=== PATIENT | female | born 1995 | race African-American/Black ===

== ENCOUNTER 2018-04-12 10:23 | Outpatient (CLI) | payer BC | END 2018-04-12 11:27 | disposition home or self-care (01) | LOC: LC 10:23 | PROVIDERS: ATTEND Obstetrics & Gynecology | PROC: 4A1HXCZ Monitoring of Products of Conception, Cardiac Rate, External Approach (ICD-10-PCS; principal; 2018-04-12) | DX: O48.0 Post-term pregnancy (principal); Z3A.40 40 weeks gestation of pregnancy | CPT/HCPCS: 59025 ==

== ENCOUNTER 2018-04-14 07:31 | Outpatient (CLI) | payer BC ==
--- NOTE | 2018-04-14 07:32 | L&D Progress Notes ---
PROGRESS NOTES Datetime Report Generated by CPN: 04/14/2018 07:32 PROGRESS NOTE Comment: Sent from office for repeat NST, transverse, Ct 1 strip, pt would like to have a version, Dr. Gross is communications project lead so Version was scheduled for that day, risk rviwed with pt pt sent from office for repeat NST, Cat 1 strip, baby is transverse, discussed version versus C/S, discussed risks with both, pt has decided to try a version, will schedule version for , call unit at 0500. NPO after midnight. Instructed if she starts in to labor or water breaks she is to come to LD [facility], discussed increase risk of prolapse cord with transverse position. Sister with pt and they agree version is the best for now. Pt is aware she can change her mind at any time. Pt voices her understanding of the plan SIGNATURE SIGNATURE: [id number] Assignment: Agatha Collazo MD Signature: with User ID: [email or web address] : with User ID: [email or web address]
[2018-04-14] MEDS ORDERED: PRENATAL VITAMIN W DHA CAPSULE PO SCH (11:15)
--- NOTE | 2018-04-14 12:18 | RADIOLOGY REPORT (SQ) ---
EXAM DESCRIPTION: U/S PROFILE W/O STRESS COMPLETED DATE/TIME: 04/14/2018 12:03 pm REASON FOR STUDY: nonreactive NST COMPARISON: None. TECHNIQUE: Limited james-scale realtime and static images of the fetus to measure specified parameter s. LIMITATIONS: None. FINDINGS: HEART RATE: 152 beats per minute. BREATHING MOVEMENT: 2 points. MOVEMENT: 2 points. POSTURE AND TONE: 2 points. QUALITATIVE BERNARDA: 2 points. OTHER: Vertex presentation. IMPRESSION: BIOPHYSICAL PROFILE: 04/27. Trimester of : Third - 28 weeks to delivery COMMENT: BREATHING MOVEMENTS: 2 POINTS: PRESENT 0 POINTS: ABSENT MOTION: 2 POINTS: PRESENT 0 POINTS: ABSENT TONE: 2 POINTS: PRESENT 0 POINTS: ABSENT AMNIOTIC FLUID VOLUME: 2 POINTS: LARGEST POCKET GREATER THAN 2 CM DEPTH. 0 POINTS: NO POCKET OF 2 CM. TECHNICAL DOCUMENTATION: JOB ID: [id number] [employer]- All Rights Reserved Reading location - IP/workstation name: [email or web address]
--- NOTE | 2018-04-14 12:40 | Non Stress Test Report ---
Non Stress Test Datetime Report Generated by CPN: 04/14/2018 12:39 DEMOGRAPHIC EGA NST: 40.3 EGA NST: 40.1 INDICATION Indication for Study: Ordered by Provider Indication for Study: Ordered by Provider; Other Indication for Study (NST) Other: repeat NST MONITORING Monitor Explained: Monitor Explained; Test Explained; Patient Verbalized Understanding Monitor Explained: Monitor Explained; Test Explained; Patient Verbalized Understanding Monitor Explained Other: see flowsheet for vital signs Time on Monitor: 04/14/2018 07:54 Time on Monitor: 04/12/2018 10:37 Time off Monitor: 04/14/2018 11:12 NST Duration: 198 NST INTERVENTIONS NST Interventions: PO Hydration; Meal Given; Reposition Patient; Vibroacoustic Stim; For Biophysical Profile NST Interventions: PO Hydration; Reposition Patient Physician Notified NST: Dr. Gross BABY A: [id number] BABY A Movement : Present Contraction Frequency : none FHR Baseline : 150 Accelerations : 15X15 Decelerations : None Variability : Moderate 6-25bpm NST Review: Does Not Meet Criteria for Reactive NST NST Review and Verified By : H. Marta, RN NST Results: Non-Reactive NST COMMENTS NST Comments: BPP 8/8 NST REPORT Report Trigger: Send Report
== END 2018-04-14 12:56 | disposition home or self-care (01) ==
LOC: LR 07:31 → UNDOADMIN 07:31 → LC 07:31 → EDSTATUS 04-19 08:15
PROVIDERS: ATTEND Obstetrics & Gynecology
DX: Z34.93 Encounter for supervision of normal pregnancy, unspecified, third trimester (principal)
CPT/HCPCS: 76819

== ENCOUNTER 2018-04-17 18:25 | Inpatient (IN) | payer BC ==
[2018-04-17] MEDS ORDERED: RINGERS SOLUTION,LACTATED 300 ML IV ONE (18:38)
[2018-04-17] MEDS ORDERED: DINOPROSTONE 10 MG VAGINAL INSERT.SR PV PRN (18:38)
[2018-04-17 18:48] LABS: APPEARANCE,URINE SLIGHTLY-CLOUDY; BILIRUBIN,URINE NEGATIVE (NEGATIVE); COLOR,URINE STRAW; GLUCOSE, URINE NEGATIVE (NEGATIVE); KETONES,URINE NEGATIVE (NEGATIVE); LEUKOCYTE ESTERASE,URINE NEGATIVE (NEGATIVE); NITRITE,URINE NEGATIVE (NEGATIVE); PROTEIN,URINE NEGATIVE (NEGATIVE); URINE SPECIFIC GRAVITY 1.001; UROBILINOGEN,URINE NEGATIVE mg/dL (<2.0)
[2018-04-17 19:07] LABS: ABSOLUTE BASOPHILS # (AUTO) 0.1 10^3/uL (0.0-0.2); ABSOLUTE EOSINOPHILS # (AUTO) 0.1 10^3/uL (0.0-0.6); ABSOLUTE LYMPHOCYTES (AUTO) 1.5 10^3/uL (0.5-4.7); ABSOLUTE MONOCYTES (AUTO) 0.6 10^3/uL (0.1-1.4); ABSOLUTE NEUT (AUTO) 3.2 10^3/uL (1.7-8.2); BASOPHILS % (AUTO) 0.9 % (0-2); EOSINOPHILS % (AUTO) 1.6 % (0-6); HEMATOCRIT 36.1 % (36.0-47.0); HEMOGLOBIN 11.9 g/dL (12.0-15.5); LYMPHOCYTES % (AUTO) 27.6 % (13-45); MEAN CORPUSCULAR HEMOGLOBIN 23.1 pg (27.0-33.4); MEAN CORPUSCULAR VOLUME 70 fl (80-97); MONOCYTES % (AUTO) 10.8 % (3-13); PLATELET COUNT 192 10^3/uL (150-450); RED BLOOD COUNT 5.15 10^6/uL (3.72-5.28); RED CELL DISTRIBUTION WIDTH 16.7 % (11.5-14.0); SEGMENTED NEUTROPHILS % (AUTO) 59.1 % (42-78); TOTAL CELLS COUNTED % (AUTO) 100 %; WHITE BLOOD COUNT 5.5 10^3/uL (4.0-10.5)
[2018-04-17 19:14] LABS: URINE AMPHETAMINES SCREEN NEGATIVE; URINE BARBITURATES SCREEN NEGATIVE; URINE BENZODIAZEPINES SCREEN NEGATIVE; URINE COCAINE SCREEN NEGATIVE; URINE MARIJUANA (THC) SCREEN NEGATIVE; URINE METHADONE SCREEN NEGATIVE; URINE PHENCYCLIDINE SCREEN NEGATIVE
[2018-04-17] MEDS ORDERED: DINOPROSTONE 10 MG VAGINAL INSERT.SR ONE (19:58)
--- NOTE | 2018-04-17 20:17 | Admission Physical ---
Datetime Report Generated by CPN: 04/17/2018 20:16 CURRENT ADMISSION Chief Complaint: Scheduled Induction of Labor Indication for Induction: Post Dates Admit Impression : Postterm, Intrauterine ; Intact Membranes; Induction of Labor Admit Plan: Admit to Unit; Initiate Labor Protocol ALLERGIES Medication Allergies: No Medication Allergies: No Known Allergies (04/14/2018) OBSTETRICAL HISTORY EDC: 04/11/2018 00:00 : 1 Para: 0 Term: 0 : 0 SAB: 0 IAB: 0 Ectopic: 0 Livin Cesareans: 0 VBACs: 0 Multiple Births: 0 Gestational Diabetes: No Rh Sensitization: No Incompetent Cervix: No KUNAL: No Infertility: No ART Treatment: No Uterine Anomaly: No IUGR: No Hx Previous C/S: No Macrosomia: No Hx Loss/Stillborn: No PIH: No Hx : No Placenta Previa/Abruption: No Depression/PP Depression: No PTL/PROM: No Post Hemorrhage: No Current Procedures: Ultrasound; NST Obstetrical History Comments: G1: Current SEE RECORDS Alcohol: No Marijuana : No Cocaine: No Other Illicit Drugs: No Cigarettes: Never Smoker. 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 INFECTIOUS HISTORY Gonorrhea: No Genital Herpes: No Chlamydia: No Tuberculosis: No Syphilis: No Hepatitis: No HIV/AIDS Exposure: No Rash or Viral Illness: No HPV: No PHYSICAL EXAM General: Normal HEENT: Normal Neurologic: Normal Thyroid: Normal Heart: Normal Lungs: Normal Breast: Deferred Back: Normal Abdomen: Normal Genitourinary Exam: Normal Extremities: Normal DTRs: Normal Pelvic Type: Adequate Vital Signs: Reviewed VAGINAL EXAM Dilatation: 1 Effacement: 25 Station: -3 MEMBRANES Pooling: Negative Membranes: Intact FETUS A EGA: 40.6 Monitoring: External US FHR- Baseline: 130 Variability: Moderate 6-25bpm Accelerations: 15X15 Decelerations: None FHR Category: Category I Presentation: Vertex Admit Comment: efw 7-8 lbs PLANS FOR LABOR AND DELIVERY Labor and Delivery: None Pain Management: Natural Feeding Preference: Breast Benefit of Breast Feed Discussed: Yes Circumcision: Yes INFORMED CONSENT Signature: with User ID: [email or web address]
[2018-04-17] MEDS: RINGERS SOLUTION,LACTATED 1,000 ML IV PRN ×3 (20:26→23:50)
[2018-04-18] MEDS ORDERED: OXYTOCIN/NORMAL SALINE 20 UNIT/1,000 ML RTUINJ IV PRN (10:24)
--- NOTE | 2018-04-18 10:24 | L&D Progress Notes ---
PROGRESS NOTES Datetime Report Generated by CPN: 04/18/2018 10:24 PROGRESS NOTE Impression Other: IUP @ 41w-IOL stable Procedures: Sterile Vag Exam Plan: Continue Present Management; Induction Informed Consent Obtained: Vaginal Delivery; Induction of Labor; Risks, Benefits and Alternatives Discussed Vital Signs : Reviewed; Within Normal Limits Comment: S: reports occasional cramping this AM, does not plan on epidural or pain medication at this time O: VSS, cervix as stated A: IUP @41w IOL for post term-status post cervidil P: continue IOL, will transition to IV pitocin per protocol. Reviewed poc. Pt. asked questions and verbalized understanding. Epidural prn. VAGINAL EXAM Dilatation: 3 Dilatation: 1 Effacement: 70 Effacement: 25 Station: -1 Station: -3 Contractions: irregular MEMBRANES Pooling: Negative Membranes: Intact Membranes: Intact FETUS A FHR - Baseline: 155 Monitoring: External US Variability: Moderate 6-25bpm Accelerations: 10X10 Decelerations: Variable : 41.0 Presentation: Vertex SIGNATURE SIGNATURE: [id number];[id number];[id number] SIGNATURE: [id number];[id number];[id number] SIGNATURE: [id number];[id number] Assignment: Leesa Gross MD Signature: with User ID: [email or web address] : with User ID: [email or web address]
[2018-04-18] MEDS ORDERED: OXYTOCIN/NORMAL SALINE 20 UNIT/1,000 ML RTUINJ ONE (11:04)
[2018-04-18] MEDS ORDERED: LIDOCAINE 1% INJ-PF (10 MG/ML) 30 ML SDV ONE (14:27)
[2018-04-18] MEDS ORDERED: MISOPROSTOL 0.2 MG TABLET ONE (14:27)
--- NOTE | 2018-04-18 17:09 | L&D Progress Notes ---
PROGRESS NOTES Datetime Report Generated by CPN: 04/18/2018 17:09 PROGRESS NOTE Impression Other: IOL-stable Procedures: Intrauterine Pressure Catheter; Sterile Vag Exam Plan: Induction Informed Consent Obtained: Induction of Labor; Risks, Benefits and Alternatives Discussed Vital Signs : Reviewed; Within Normal Limits Comment: S: pt. with more pain with contractions, does not desire anything for pain control at this time. O: VSS, pit off, cervix as stated, IUPC inserted without difficulty A: IUP @ 41w- stable, progressing some caput at this time P: continue IOL will re-start pitocin, epidural prn. Report given to Dr. Gross. MEMBRANES Membranes: Ruptured Amniotic Fluid Color: Clear FETUS A Monitoring: External US Decelerations: Variable; Prolonged FHR Category: Category II FHR Comments: resolved with position changes FETUS C SIGNATURE: [id number];[id number];[id number] Assignment: Leesa Gross MD Signature: with User ID: [email or web address] : with User ID: [email or web address]
[2018-04-18] MEDS ORDERED: FENTANYL/BUPIVACAINE/NS/PF 200 MCG/100 ML RTUINJ EPI ONE (21:33)
[2018-04-18] MEDS ORDERED: BUPIVACAINE HCL 0.25 % INJ/PF (2.5 MG/1 ML) 30 ML VIAL ONE (21:36)
[2018-04-18] MEDS ORDERED: FENTANYL CITRATE INJ/PF 100 MCG/2 ML AMPUL ONE (21:36)
[2018-04-18] MEDS ORDERED: EPHEDRINE SULFATE INJ 50 MG/1 ML AMPULE ONE (21:38)
[2018-04-19] MEDS ORDERED: BUPIVACAINE HCL 0.5 % INJ/PF 30 ML SDV ONE (03:14)
[2018-04-19] MEDS ORDERED: MAGNESIUM HYDROXIDE SUSP 30 ML UDCUP PO PRN (05:22)
[2018-04-19] MEDS ORDERED: GLYCERIN/WITCH HAZEL LEAF 1 EACH MED..PAD TP PRN (05:22)
[2018-04-19] MEDS ORDERED: NA PHOS,M-B/NA PHOS,DI-BA (ADULT) 133 ML ENEMA PR PRN (05:22)
[2018-04-19] MEDS ORDERED: PSEUDOEPHEDRINE HCL 30 MG TABLET PO PRN (05:22)
[2018-04-19] MEDS ORDERED: DIBUCAINE 1% OINTMENT 28 GM TP PRN (05:22)
[2018-04-19] MEDS ORDERED: BENZOCAINE/MENTHOL AEROSOL SPRAY 56 ML TOP PRN (05:22)
[2018-04-19] MEDS ORDERED: ZOLPIDEM TARTRATE 5 MG TABLET PO PRN (05:22)
[2018-04-19] MEDS ORDERED: DIPHENHYDRAMINE HCL 25 MG CAPSULE PO PRN (05:22)
[2018-04-19] MEDS ORDERED: MEASLES,MUMPS&RUBELLA VACC/PF 0.5 ML VIAL SUBCUT PRN (05:22)
[2018-04-19] MEDS ORDERED: DIPH/PERTUSS(ACELL)/TETANUS VAC/PF 0.5 ML SYR (>=10YO) IM PRN (05:22)
[2018-04-19] MEDS ORDERED: PROMETHAZINE HCL INJ 25 MG/1 ML VIAL IV PRN (05:22)
[2018-04-19] MEDS ORDERED: ACETAMINOPHEN WITH CODEINE #3 TABLET PO PRN ×2 (05:22)
[2018-04-19] MEDS ORDERED: PROMETHAZINE HCL 25 MG SUPP.RECT PR PRN (05:22)
[2018-04-19] MEDS ORDERED: OXYTOCIN/NORMAL SALINE 20 UNIT/1,000 ML RTUINJ IV PRN (05:22)
[2018-04-19] MEDS ORDERED: PROMETHAZINE HCL 25 MG TABLET PO PRN (05:22)
[2018-04-19] MEDS ORDERED: ACETAMINOPHEN 325 MG TABLET PO PRN (05:22)
[2018-04-19] MEDS ORDERED: IBUPROFEN 800 MG TABLET ONE (06:36)
[2018-04-19] MEDS: IBUPROFEN 800 MG TABLET PO SCH ×3 (07:18→21:03)
--- NOTE | 2018-04-19 08:11 | Delivery Summary ---
Del Sum A-C Datetime Report Generated by CPN: 04/19/2018 08:10 DELIVERY PERSONNEL DELIVERY PERSONNEL: [id number] Delivery Doctor:: Leesa Gross MD Labor and Delivery Nurse:: Colette Mahoney RN Nursery Nurse:: Lin Peraza RN Business Systems Advisor/SLOT MANAGER: Elliot Ertel, SLOT MANAGER MATERNAL INFORMATION Delivery Anesthesia: Epidural Medications After Delivery: Pitocin Drip 20 Units/1000ml NSS Maternal Complications: None Provider Comments: VMI delivered in JUAN PABLO presentation. No nuchal cord. Shoulders and body delivered without difficulty. COrd doubly clamped and cut and infant to maternal warmer for NRP. Placenta delivered intact spontaneously. FF at U. 1st degree perineal laceration repaired in usual fahsion. Mother and baby stable upon provider leaving the room. LABOR SUMMARY EDC: 04/11/2018 00:00 No. Babies in Womb: 1 Attempted: No Labor Anesthesia: Epidural LABOR INFORMATION Reason for Induction: Post Dates Onset of Labor: 04/19/2018 12:48 Complete Dilatation: 04/19/2018 03:32 Cervical Ripening Agents: Cervidil Oxytocin: Induction Group B Beta Strep: Negative Antibiotics # of Doses: 0 Steroids Given: None Reason Steroids Not Administered: Not Applicable MEMBRANES Membranes Rupture Method: Artificial Rupture of Membranes: 04/18/2018 12:48 Length of Rupture (hr): 15.42 Amniotic Fluid Color: Clear Amniotic Fluid Amount: Small Amniotic Fluid Odor: Normal STAGES OF LABOR Stage 1 hr: -9 Stage 1 min: -16 Stage 2 hr: 0 Stage 2 min: 41 Stage 3 hr: 0 Stage 3 min: 2 Total Time in Labor hr: -8 Total Time in Labor min: -33 VAGINAL DELIVERY Episiotomy: None Laceration #1: Vaginal Laceration Extension #1: First Degree Laceration Repair: Yes Laceration Repair Note: 1st degree perineal laceartion repaired for hemostasis Sponge Count Correct: Yes Sharps Count Correct: Yes CSECTION DELIVERY Primary Indication: N/A Secondary Indication: N/A CSection Incision: N/A BABY A INFORMATION Infant Delivery Date/Time: 04/19/2018 04:13 Method of Delivery: Vaginal Method of Delivery: Vaginal Born in Route : No : N/A Forceps: N/A Vacuum Extraction: N/A Shoulder Dystocia : No PRESENTATION/POSITION BABY A Presentation: Cephalic Cephalic Presentation: Vertex Vertex Position: Left Occipital Anterior Breech Presentation: N/A PLACENTA INFORMATION BABY A Placenta Delivery Time : 04/19/2018 04:15 Placenta Method of Delivery: Spontaneous Placenta Method of Delivery: Spontaneous Placenta Status: Delivered SCORES BABY A Heart Rate 1 min: >100 bpm Resp Effort 1 min: Good Cry Reflex Irritability 1 min: Cough or Sneeze or Pulls Away Muscle Tone 1 min: Active Motion Color 1 min: Blue/Pale Resuscitation Effort 1 min: Tactile Stimulation SCORE 1 MIN: 8 Heart Rate 5 min: >100 bpm Resp Effort 5 min: Good Cry Reflex Irritability 5 min: Cough or Sneeze or Pulls Away Muscle Tone 5 min: Active Motion Color 5 min: Body Mcleod, Extremities Blue Resuscitation Effort 5 min: Tactile Stimulation SCORE 5 MIN: 9 INFORMATION BABY A Gestational Age at Delivery: 41.1 Gestational Status: Late Term- 41- 41.6 Weeks Outcome : Liveborn Condition : Stable Sex: Male Sex: Male IDENTIFICATION BABY A Verification Date/Time: 04/19/2018 04:30 ID Band Number: [id number] Mother's Name Verified: Yes RN Verifying : S. Caroltibkarlir, RNC _ A. Mabelman, RN WEIGHT/LENGTH BABY A Infant Birthweight (gm): 2580 Weight (lb): 5 Infant Weight (oz): 11 Length (in): 19.50 Infant Length (cm): 49.53 CORD INFORMATION BABY A No. Cord Vessels: 3 Nuchal Cord : Around Neck x1, Loose Cord Blood Taken: Yes-For Storage (Mom's Blood type +) Infant Suction: Mouth; Nose ASSESSMENT BABY A Complications: Decreased Variability; Multiple Variable Decels; Meconium Physical Findings at Delivery: Molding of the Head Infant Respirations: Appears Normal Skin to Skin: Yes Skin to Skin: Yes In Home Sales Consultant/ALS Called : No Infant Care By: Jasmine Peraza RN Transferred To: Remains with Mother BABY B INFORMATION : N/A SIGNATURES Signature: with User ID: [email or web address]
--- NOTE | 2018-04-19 09:29 | PDOC PROGRESS REPORT ---
Subjective-OB Progress Note for:: 04/19/18 Subjective: Doing well, no c/o, scant bleeding, eating and voiding well Physical Exam (OB) Vital Signs: Temp Pulse Resp BP Pulse Ox 97.7 F 87 15 118/78 99 04/19/18 07:32 04/19/18 07:32 04/19/18 07:32 04/19/18 07:32 04/19/18 07:32 Intake & Output 04/18/18 04/19/18 04/20/18 06:59 06:59 06:59 Intake Total 1419 21 Balance 1419 21 Weight 91.6 kg - PIH/Pre-Eclampsia DTR's: 2 + Clonus: Negative Headache: Absent Epigastric Pain: No Visual Changes: No - Lochia Lochia Amount: Small 10-25 ml Lochia Color: Rubra/Red - Abdomen Description: Soft Hernia Present: No Fundal Description: Firm, Midline Fundal Height: u/u - u/2 Objective-Diagnostic Laboratory: 04/17/18 18:52 Assessment and Plan(PN) - Assessment and Plan (1) Delivery normal Is this a current diagnosis for this admission?: Yes (2) Post term at 41 weeks gestation Is this a current diagnosis for this admission?: Yes - Time Spent with Patient Time with patient: Less than 15 minutes Medications reviewed and adjusted accordingly: Yes - Disposition Anticipated Discharge: Home Within: within 24 hours
[2018-04-19] MEDS: PRENATAL VITAMIN W DHA CAPSULE PO SCH (09:35)
[2018-04-19] MEDS: DOCUSATE SODIUM 100 MG CAPSULE PO SCH ×2 (09:35→17:17)
[2018-04-19] MEDS: FAMOTIDINE 20 MG TABLET PO SCH ×2 (09:35→21:03)
[2018-04-19] MEDS: FERROUS SULFATE 325 MG TABLET PO SCH ×2 (09:35→17:17)
[2018-04-19] MEDS: SENNOSIDES/DOCUSATE 8.6-50 MG 1 EACH TABLET PO SCH (09:35)
[2018-04-20] MEDS: IBUPROFEN 800 MG TABLET PO SCH ×3 (05:25→22:17)
[2018-04-20 07:38] LABS: HEMATOCRIT 30.8 % (36.0-47.0); HEMOGLOBIN 10.2 g/dL (12.0-15.5); MEAN CORPUSCULAR HEMOGLOBIN 23.5 pg (27.0-33.4); MEAN CORPUSCULAR HGB CONC 33.2 g/dL (32.0-36.0); MEAN CORPUSCULAR VOLUME 71 fl (80-97); PLATELET COUNT 156 10^3/uL (150-450); RED BLOOD COUNT 4.37 10^6/uL (3.72-5.28); WHITE BLOOD COUNT 10.2 10^3/uL (4.0-10.5)
--- NOTE | 2018-04-20 08:51 | PDOC PROGRESS REPORT ---
Subjective-OB Progress Note for:: 04/20/18 Subjective: Doing well, no c/o, would like to go home Physical Exam (OB) Vital Signs: Temp Pulse Resp BP Pulse Ox 97.8 F 88 16 108/67 98 04/20/18 07:26 04/20/18 07:26 04/20/18 07:26 04/20/18 07:26 04/20/18 07:26 Intake & Output 04/19/18 04/20/18 04/21/18 06:59 06:59 06:59 Intake Total 21 360 Balance 21 360 - PIH/Pre-Eclampsia DTR's: 2 + Clonus: Negative Headache: Absent Epigastric Pain: No Visual Changes: No - Lochia Lochia Amount: Small 10-25 ml Lochia Color: Rubra/Red - Abdomen Description: Soft, Round Hernia Present: No Fundal Description: Firm, Midline Fundal Height: u/u - u/2 Objective-Diagnostic Laboratory: 04/20/18 06:55 04/20/18 06:55 WBC 10.2 RBC 4.37 Hgb 10.2 L Hct 30.8 L MCV 71 L MCH 23.5 L MCHC 33.2 RDW 17.0 H Plt Count 156 Assessment and Plan(PN) - Assessment and Plan (1) Delivery normal Is this a current diagnosis for this admission?: Yes (2) Post term at 41 weeks gestation Is this a current diagnosis for this admission?: Yes - Time Spent with Patient Time with patient: Less than 15 minutes Medications reviewed and adjusted accordingly: Yes - Disposition Anticipated Discharge: Home Within: within 24 hours
[2018-04-20] MEDS: SENNOSIDES/DOCUSATE 8.6-50 MG 1 EACH TABLET PO SCH (10:25)
[2018-04-20] MEDS: FAMOTIDINE 20 MG TABLET PO SCH ×2 (10:25→22:16)
[2018-04-20] MEDS: DOCUSATE SODIUM 100 MG CAPSULE PO SCH ×2 (10:25→17:39)
[2018-04-20] MEDS: PRENATAL VITAMIN W DHA CAPSULE PO SCH (10:25)
[2018-04-20] MEDS: FERROUS SULFATE 325 MG TABLET PO SCH ×2 (10:25→17:39)
[2018-04-21] MEDS: IBUPROFEN 800 MG TABLET PO SCH ×2 (05:42→14:36)
[2018-04-21 08:39] VITALS: BP 107/69
[2018-04-21] MEDS: PRENATAL VITAMIN W DHA CAPSULE PO SCH (09:51)
[2018-04-21] MEDS: FAMOTIDINE 20 MG TABLET PO SCH (09:51)
[2018-04-21] MEDS: FERROUS SULFATE 325 MG TABLET PO SCH (09:52)
[2018-04-21] MEDS: DOCUSATE SODIUM 100 MG CAPSULE PO SCH (09:52)
[2018-04-21] MEDS: SENNOSIDES/DOCUSATE 8.6-50 MG 1 EACH TABLET PO SCH (09:52)
--- NOTE | 2018-04-21 10:39 | PDOC DISCHARGE SUMMARY ---
Final Diagnosis Discharge Date: 04/21/18 - Final Diagnosis (1) Delivery normal Is this a current diagnosis for this admission?: Yes (2) Post term at 41 weeks gestation Is this a current diagnosis for this admission?: Yes Discharge Data - Discharge Medication Home Medications: No Home Medications 04/17/18 Reason(s) for Admission: Onset of Labor Intrapartum Procedure(s): Spontaneous Vaginal Delivery - Diagnosis Test Laboratory: Temp Pulse Resp BP Pulse Ox 98.2 F 83 16 107/69 98 04/21/18 07:59 04/21/18 07:59 04/21/18 07:59 04/21/18 07:59 04/21/18 07:59 04/17/18 04/17/18 04/20/18 18:31 18:52 06:55 RBC 5.15 4.37 Hgb 11.9 L 10.2 L Hct 36.1 30.8 L Urine Opiates Screen NEGATIVE - Discharge information/Instructions Discharge Activity: Activity As Tolerated, Balance Activity w/Rest, No Lifting/ Push/Pulling, No tub bath Discharge Diet: Regular Disposition: HOME, SELF-CARE Follow up with: [facility] in: 3
[2018-04-21] MEDS ORDERED: MEDROXYPROGESTERONE ACET INJ 150 MG/1 ML VIAL IM ONE ×2 (10:53→15:16)
== END 2018-04-21 15:50 | disposition home or self-care (01) | DRG 775 ==
LOC: LR 18:25 → 2S 04-19 06:30
PROVIDERS: ADMIT Obstetrics & Gynecology; ATTEND Obstetrics & Gynecology
PROC: 4A1HXCZ Monitoring of Products of Conception, Cardiac Rate, External Approach (ICD-10-PCS; 2018-04-17)
PROC: 10907ZC Drainage of Amniotic Fluid, Therapeutic from Products of Conception, Via Natural or Artificial Opening (ICD-10-PCS; 2018-04-18)
PROC: 10E0XZZ Delivery of Products of Conception, External Approach (ICD-10-PCS; principal; 2018-04-19)
PROC: 3E0P7VZ Introduction of Hormone into Female Reproductive, Via Natural or Artificial Opening (ICD-10-PCS; 2018-04-19)
PROC: 3E033VJ Introduction of Other Hormone into Peripheral Vein, Percutaneous Approach (ICD-10-PCS; 2018-04-19)
PROC: 0HQ9XZZ Repair Perineum Skin, External Approach (ICD-10-PCS; 2018-04-19)
PROC: 3E0234Z Introduction of Serum, Toxoid and Vaccine into Muscle, Percutaneous Approach (ICD-10-PCS; 2018-04-21)
DX: O48.0 Post-term pregnancy (principal); O62.4 Hypertonic, incoordinate, and prolonged uterine contractions; O70.0 First degree perineal laceration during delivery; O69.81X0 Labor and delivery complicated by cord around neck, without compression, not applicable or unspecified; Z23 Encounter for immunization; Z3A.41 41 weeks gestation of pregnancy; Z37.0 Single live birth
CPT/HCPCS: 36415; 80307; 81005; 85025; 85027; 86592; 86850; 86900; 86901; 90715; J1050; J2590; J3010; J3490

== ENCOUNTER 2018-07-31 09:27 | Inpatient (IN) | payer BC, MEDICAID ==
--- NOTE | 2018-07-31 09:41 | ER Document Report ---
ED Medical Screen (RME) - General Chief Complaint: Flank Pain Stated Complaint: ABDOMINAL PAIN Time Seen by Provider: 07/31/18 09:38 Mode of Arrival: Ambulatory Information source: Patient TRAVEL OUTSIDE OF THE [place] IN LAST 30 DAYS: No - HPI Patient complains to provider of: R flank pain Onset: Other - Pt. with 3 days of R flank pain with occasional radiation to R inguinal area - Related Data Allergies/Adverse Reactions: No Known Allergies Allergy (Verified 04/14/18 07:46) Physical Exam - Vital signs Vitals: Temp Pulse Resp BP Pulse Ox 98.3 F 85 18 113/64 97 07/31/18 09:30 07/31/18 09:30 07/31/18 09:30 07/31/18 09:30 07/31/18 09:30 Course - Vital Signs Vital signs: Temp Pulse Resp BP Pulse Ox 98.3 F 85 18 113/64 97 07/31/18 09:30 07/31/18 09:30 07/31/18 09:30 07/31/18 09:30 07/31/18 09:30 Doctor's Discharge - Discharge Referrals: DEYSI BELL MD [Primary Care Provider] - Follow up as needed
[2018-07-31 10:14] LABS: APPEARANCE,URINE SLIGHTLY-CLOUDY; BILIRUBIN,URINE MODERATE (NEGATIVE); COLOR,URINE AMBER; GLUCOSE, URINE NEGATIVE (NEGATIVE); KETONES,URINE NEGATIVE (NEGATIVE); LEUKOCYTE ESTERASE,URINE SMALL (NEGATIVE); NITRITE,URINE NEGATIVE (NEGATIVE); PROTEIN,URINE 30 mg/dL (NEGATIVE); URINE SPECIFIC GRAVITY 1.026
[2018-07-31] MEDS ORDERED: NORMAL SALINE 1000 ML 1,000 ML IV ONE (10:20)
[2018-07-31] MEDS ORDERED: KETOROLAC TROMETHAMINE INJ/PF 30 MG/1 ML SDV IV ONE (10:20)
[2018-07-31 10:34] LABS: ABSOLUTE EOSINOPHILS # (AUTO) 0.6 10^3/uL (0.0-0.6); ABSOLUTE LYMPHOCYTES (AUTO) 1.4 10^3/uL (0.5-4.7); ABSOLUTE MONOCYTES (AUTO) 0.3 10^3/uL (0.1-1.4); ABSOLUTE NEUT (AUTO) 1.6 10^3/uL (1.7-8.2); BASOPHILS % (AUTO) 1.2 % (0-2); EOSINOPHILS % (AUTO) 14.8 % (0-6); HEMATOCRIT 42.3 % (36.0-47.0); HEMOGLOBIN 13.7 g/dL (12.0-15.5); LYMPHOCYTES % (AUTO) 35.2 % (13-45); MEAN CORPUSCULAR HEMOGLOBIN 23.7 pg (27.0-33.4); MEAN CORPUSCULAR HGB CONC 32.3 g/dL (32.0-36.0); MEAN CORPUSCULAR VOLUME 73 fl (80-97); MONOCYTES % (AUTO) 7.9 % (3-13); PLATELET COUNT 311 10^3/uL (150-450); RED BLOOD COUNT 5.76 10^6/uL (3.72-5.28); RED CELL DISTRIBUTION WIDTH 14.9 % (11.5-14.0); SEGMENTED NEUTROPHILS % (AUTO) 40.9 % (42-78); TOTAL CELLS COUNTED % (AUTO) 100 %; WHITE BLOOD COUNT 3.9 10^3/uL (4.0-10.5)
[2018-07-31 10:41] LABS: ALANINE AMINOTRANSFERASE 616 U/L (9-52); ALBUMIN 4.3 g/dL (3.5-5.0); ALKALINE PHOSPHATASE 270 U/L (38-126); ANION GAP 15 (5-19); ASPARTATE AMINO TRANSFERASE 253 U/L (14-36); BILIRUBIN,DIRECT 3.2 mg/dL (0.0-0.4); BILIRUBIN,TOTAL 3.8 mg/dL (0.2-1.3); BLOOD UREA NITROGEN 6 mg/dL (7-20); CALCIUM 9.7 mg/dL (8.4-10.2); CARBON DIOXIDE 22 mmol/L (22-30); CHLORIDE 105 mmol/L (98-107); GLUCOSE 104 mg/dL (75-110); LIPASE 164.1 U/L (23-300); POTASSIUM 4.4 mmol/L (3.6-5.0); SODIUM 142.3 mmol/L (137-145); TOTAL PROTEIN 7.9 g/dL (6.3-8.2)
--- NOTE | 2018-07-31 10:43 | RADIOLOGY REPORT (SQ) ---
EXAM DESCRIPTION: CT LTD RENAL STONE PROTOCOL ON COMPLETED DATE/TIME: 07/31/2018 10:26 am REASON FOR STUDY: R flank pain COMPARISON: None. TECHNIQUE: CT scan of the abdomen and pelvis performed without intravenous or oral contrast. Images reviewed with lung, soft tissue, and bone windows. Reconstructed coronal and sagittal MPR images revi ewed. All images stored on PACS. All CT scanners at this facility use dose modulation, iterative reconstruction, and/or weight based d osing when appropriate to reduce radiation dose to as low as reasonably achievable (ALARA). [facility]: Dose Right [facility]: CareDose [facility]: Dose Right [facility]: Teradose 4D [facility]: Smart Technologies RADIATION DOSE: CT Rad equipment meets quality standard of care and radiation dose reduction techniq ues were employed. CTDIvol: 14.1 mGy. DLP: 755 mGy-cm.mGy. LIMITATIONS: None. FINDINGS: LOWER CHEST: No significant findings. No nodules or infiltrates. NON-CONTRASTED LIVER, SPLEEN, ADRENALS: Evaluation limited by lack of IV contrast. No identified sign ificant masses. PANCREAS: No masses. No peripancreatic inflammatory changes. GALLBLADDER: No identified stones by CT criteria. No inflammatory changes to suggest cholecystitis. RIGHT KIDNEY AND URETER: No solid masses. No significant calcification. No hydronephrosis or hydroure ter. LEFT KIDNEY AND URETER: Tiny punctate nonobstructing midpole calculus. AORTA AND RETROPERITONEUM: No aneurysm. No retroperitoneal masses or adenopathy. BOWEL AND PERITONEAL CAVITY: No obvious masses or inflammatory changes. No free fluid. APPENDIX: Normal. PELVIS, BLADDER, AND ABDOMINAL WALL:No abnormal masses. No free fluid. Bladder normal. BONES: No significant findings. OTHER: No other significant finding. IMPRESSION: 1. Minimal nonobstructing left nephrolithiasis. 2. Otherwise unremarkable study. TECHNICAL DOCUMENTATION: JOB ID: [id number] Quality ID # [id number]: Final reports with documentation of one or more dose reduction techniques (e.g., Au tomated exposure control, adjustment of the mA and/or kV according to patient size, use of iterative reconstruction technique) 2010 [employer]- All Rights Reserved Reading location - IP/workstation name: [email or web address]
--- NOTE | 2018-07-31 11:21 | ER Document Report ---
ED General - General Chief Complaint: Flank Pain Stated Complaint: ABDOMINAL PAIN Time Seen by Provider: 07/31/18 09:38 Mode of Arrival: Ambulatory TRAVEL OUTSIDE OF THE [place] IN LAST 30 DAYS: No - HPI Notes: Patient is a 23-year-old female that presents to the emergency department for chief complaint of epigastric pain. Patient reports pain in her epigastrium that radiates around her right side into her back for the last 3-4 days. She reports nausea and occasional vomiting. She denies any diarrhea or constipation. She states the pain is sharp and constant. She denies any relieving factors to her pain. She denies any aggravating factors to her pain. She has no history of abdominal issues including pancreatitis or GERD. She denies any alcohol use. She denies eating in any new restaurants. She denies history of IV drug use. 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 Past Medical History: Negative Past Surgical History: Negative Social History: Denies drugs alcohol and tobacco Family History: Reviewed and noncontributory for presenting illness Allergies: Reviewed, see documented allergy list. REVIEW OF SYSTEMS: CONSTITUTIONAL : No fever No chills No diaphoresis No recent illness EENT: No vision changes No congestion No sore throat CARDIOVASCULAR: No chest pain No palpitations RESPIRATORY: No shortness of breath No cough No difficulty breathing GASTROINTESTINAL: abdominal pain nausea vomiting No diarrhea GENITOURINARY: No dysuria No hematuria No difficulty urinating MUSCULOSKELETAL: No back pain No leg pain No arm pain SKIN: No rashes No lesions LYMPHATIC: No swollen, enlarged glands. NEUROLOGICAL: No lightheadedness No headache No weakness No paresthesias PSYCHIATRIC: No anxiety No depression PHYSICAL EXAMINATION: Vital signs reviewed, nursing noted reviewed. GENERAL: Well-appearing, well-nourished and in no acute distress. HEAD: Atraumatic, normocephalic. EYES: Eyes appear normal, extraocular movements intact, sclera anicteric, conjunctiva are normal. ENT: nares patent, oropharynx clear without exudates. Moist mucous membranes. NECK: Normal range of motion, supple without lymphadenopathy LUNGS: Breath sounds clear to auscultation bilaterally and equal. No wheezes rales or rhonchi. HEART: Regular rate and rhythm without murmurs ABDOMEN: Soft, epigastric and right upper quadrant tenderness, positive Ortiz sign, normoactive bowel sounds. No rebound, guarding, or rigidity. No masses appreciated. EXTREMITIES: Nontender, good range of motion, no pitting or edema. NEUROLOGICAL: No focal neurological deficits. Moves all extremities spontaneously Motor and sensory grossly intact on exam. PSYCH: Normal mood, normal affect. SKIN: Warm, Dry, normal turgor, no rashes or lesions noted on exposed skin - Related Data Allergies/Adverse Reactions: No Known Allergies Allergy (Verified 04/14/18 07:46) Past Medical History - General Information source: Patient - Social History Smoking Status: Never Smoker Family History: Reviewed & Not Pertinent Patient has suicidal ideation: No Patient has homicidal ideation: No Renal/ Medical History: Denies: Hx Peritoneal Dialysis Review of Systems - Review of Systems Notes: Dictated Physical Exam - Vital signs Vitals: Temp Pulse Resp BP Pulse Ox 98.3 F 85 18 113/64 97 07/31/18 09:30 07/31/18 09:30 07/31/18 09:30 07/31/18 09:30 07/31/18 09:30 - Notes Notes: Dictated Course - Re-evaluation Re-evalutation: 07/31/18 11:20 Vitals reviewed. Nursing notes reviewed. Patient is nontoxic-appearing and hemodynamically stable. She was given IV hydration and Toradol for symptomatic management. She is currently denying any nausea. Lab work shows elevated LFTs. Patient has no gallbladder stones or signs of cholecystitis on CT scan however she does have a positive Ortiz sign and ultrasound will be obtained. Hepatitis panel was ordered. Laboratory 07/31/18 07/31/18 07/31/18 09:42 09:48 09:48 WBC 3.9 L RBC 5.76 H Hgb 13.7 Hct 42.3 MCV 73 L MCH 23.7 L MCHC 32.3 RDW 14.9 H Plt Count 311 Seg Neutrophils % 40.9 L Lymphocytes % 35.2 Monocytes % 7.9 Eosinophils % 14.8 H Basophils % 1.2 Absolute Neutrophils 1.6 L Absolute Lymphocytes 1.4 Absolute Monocytes 0.3 Absolute Eosinophils 0.6 Absolute Basophils 0.0 Sodium 142.3 Potassium 4.4 Chloride 105 Carbon Dioxide 22 Anion Gap 15 BUN 6 L Creatinine 0.62 Est GFR ( Amer) > 60 Est GFR (Non-Af Amer) > 60 Glucose 104 Calcium 9.7 Total Bilirubin 3.8 H Direct Bilirubin 3.2 H Neonat Total Bilirubin Not Reportable Neonat Direct Bilirubin Not Reportable Neonat Indirect Bili Not Reportable AST 253 H ALT 616 H Alkaline Phosphatase 270 H Total Protein 7.9 Albumin 4.3 Lipase 164.1 Urine Color ALFONSO Urine Appearance SLIGHTLY-CLOUDY Urine pH 6.0 Ur Specific Artemas 1.026 Urine Protein 30 H Urine Glucose (UA) NEGATIVE Urine Ketones NEGATIVE Urine Blood MODERATE H Urine Nitrite NEGATIVE Urine Bilirubin MODERATE H Urine Urobilinogen 4.0 H Ur Leukocyte Esterase SMALL H Urine WBC (Auto) 8 Urine RBC (Auto) 2 Squamous Epi Cells Auto 10 Urine Mucus (Auto) MOD Urine Ascorbic Acid NEGATIVE Urine HCG, Qual NEGATIVE Limited or Localized CT 07/31/18 09:39 IMPRESSION: 1. Minimal nonobstructing left nephrolithiasis. 2. Otherwise unremarkable study. 07/31/18 13:29 Ultrasound shows cholelithiasis with no acute cholecystitis. Case was discussed with Dr. Muro who evaluated the patient in the emergency room. He recommends admission to the hospital and close monitoring of her acute liver failure. He recommends admission to medicine with surgery on consultation. Case was discussed with Dr. Sheets who is accepted admission. Patient in agreement with this plan and stable at time of admission. - Vital Signs Vital signs: Temp Pulse Resp BP Pulse Ox 98.3 F 85 18 113/64 97 07/31/18 09:30 07/31/18 09:30 07/31/18 09:30 07/31/18 09:30 07/31/18 09:30 - Laboratory Result Diagrams: 07/31/18 09:48 07/31/18 09:48 Laboratory results interpreted by me: 07/31/18 07/31/18 07/31/18 09:42 09:48 09:48 WBC 3.9 L RBC 5.76 H MCV 73 L MCH 23.7 L RDW 14.9 H Seg Neutrophils % 40.9 L Eosinophils % 14.8 H Absolute Neutrophils 1.6 L BUN 6 L Total Bilirubin 3.8 H Direct Bilirubin 3.2 H AST 253 H ALT 616 H Alkaline Phosphatase 270 H Urine Protein 30 H Urine Blood MODERATE H Urine Bilirubin MODERATE H Urine Urobilinogen 4.0 H Ur Leukocyte Esterase SMALL H Discharge - Discharge Clinical Impression: Transaminitis Cholelithiasis Qualifiers: Cholelithiasis location: gallbladder Cholecystitis presence: without cholecystitis Biliary obstruction: without biliary obstruction Qualified Code(s) : K80.20 - Calculus of gallbladder without cholecystitis without obstruction Abdominal pain Qualifiers: Abdominal location: right upper quadrant Qualified Code(s): R10.11 - Right upper quadrant pain Condition: Stable Disposition: ADMITTED INPATIENT Admitting Provider: Hospitalist Unit Admitted: Medical Floor Referrals: DEYSI BELL MD [ACTIVE STAFF] - Follow up as needed
--- NOTE | 2018-07-31 12:27 | RADIOLOGY REPORT (SQ) ---
EXAM DESCRIPTION: U/S ABDOMEN LTD W/DOPPLER COMPLETED DATE/TIME: 07/31/2018 12:13 pm REASON FOR STUDY: Elevated LFTs COMPARISON: None. TECHNIQUE: Dynamic and static grayscale images acquired of the abdomen and recorded on PACS. Additio nal selected color Doppler and spectral images recorded. LIMITATIONS: None. FINDINGS: PANCREAS: No masses. Visualized pancreatic duct normal caliber. LIVER: No masses. Echotexture normal. LIVER VASCULATURE: Normal directional flow of the main portal vein and hepatic veins. GALLBLADDER: Echogenic shadowing stones. No wall thickening or pericholecystic fluid. ULTRASOUND-DETECTED COLUNGA'S SIGN: Negative. INTRAHEPATIC DUCTS AND COMMON DUCT: CBD and intrahepatic ducts normal caliber. No filling defects. INFERIOR VENA CAVA: Normal flow. AORTA: No aneurysm. RIGHT KIDNEY: Normal size. Normal echogenicity. No solid or suspicious masses. No hydronephrosis. No calcifications. PERITONEAL AND RIGHT PLEURAL SPACE: No ascites or effusions. OTHER: No other significant findings. IMPRESSION: 1. Cholelithiasis. TECHNICAL DOCUMENTATION: JOB ID: [id number] [employer]- All Rights Reserved Reading location - IP/workstation name: [email or web address]
--- NOTE | 2018-07-31 13:49 | PDOC CONSULTATION ---
Consultation Consult Date: 07/31/18 Attending physician:: XIANG WESTON Consult reason:: Abdominal pain History of Present Illness Admission Date/PCP: 07/31/18 13:38 Patient complains of: Abdominal pain History of Present Illness: SERGIO KUHN is a 23 year old female Who presents to the emergency department complaining of a 3-day history of abdominal pain nausea vomiting x1 and 1 loose stool. Last ate last night. No previous episodes. There is no family history of biliary tract disease. She denies alcohol or drug abuse. The pain persisted in the right upper quadrant epigastric area. This morning she called the rescue squad and was brought in. She was initially thought to possibly be having a kidney stone and a CT scan of the abdomen and pelvis without oral or IV contrast was performed which was essentially unremarkable. Her liver function studies were found to be elevated , so a gallbladder ultrasound was performed which showed cholelithiasis only. Appetite is panel was ordered. Internal medicine service was consulted, and agreed to admit the patient for further evaluation and treatment, with surgery consulting. The patient was given 1 dose of Toradol and had relief. The patient denies previous episodes of gallbladder problems. She denies gastrointestinal problems as well. Past Medical History Medical History: None Past Surgical History Past Surgical History: Reports: None Social History Information Source: Patient Smoking Status: Never Smoker Hx Recreational Drug Use: No Hx Prescription Drug Abuse: No Family History Family History: None, Reviewed & Not Pertinent Parental Family History Reviewed: Yes Children Family History Reviewed: Yes Sibling(s) Family History Reviewed.: Yes Medication/Allergy Home Medications: Ibuprofen [Motrin 800 mg Tablet] 800 mg PO Q8 #90 tablet 04/21/18 Medroxyprogesterone Acet [Depo-Provera Inj 150 mg/1 ml Vial] 150 mg IM ONCE PRN #1 vial 04/21/18 Allergies/Adverse Reactions: No Known Allergies Allergy (Verified 04/14/18 07:46) Review of Systems Constitutional: PRESENT: as per HPI Eyes: ABSENT: visual disturbances Ears: ABSENT: hearing changes Respiratory: ABSENT: cough, hemoptysis Gastrointestinal: PRESENT: as per HPI Genitourinary: PRESENT: as per HPI, other - Patient noticed urine the color of Pepsi-Cola this morning. ABSENT: dysuria, hematuria Musculoskeletal: ABSENT: joint swelling Integumentary: ABSENT: rash, wounds Neurological: ABSENT: abnormal gait, abnormal speech, confusion, dizziness, focal weakness, syncope Physical Exam Vital Signs: Temp Pulse Resp BP Pulse Ox 98.3 F 85 18 113/64 97 07/31/18 09:30 07/31/18 09:30 07/31/18 09:30 07/31/18 09:30 07/31/18 09:30 General appearance: PRESENT: no acute distress Head exam: PRESENT: normocephalic Eye exam: PRESENT: scleral icterus, other Ear exam: PRESENT: normal external ear exam Neck exam: PRESENT: full ROM Respiratory exam: PRESENT: clear to auscultation jaxon Cardiovascular exam: PRESENT: RRR Pulses: PRESENT: normal carotid pulses, normal radial pulses, normal femoral pulses, normal dorsalis pedis pul GI/Abdominal exam: PRESENT: other - Soft, tender in the right upper quadrant but no peritoneal signs no organomegaly; minimal bloating Rectal exam: PRESENT: deferred Musculoskeletal exam: PRESENT: full ROM Neurological exam: PRESENT: alert, awake, oriented to person, oriented to time, oriented to situation Psychiatric exam: PRESENT: appropriate affect Results Impressions: Limited or Localized CT 07/31/18 09:39 IMPRESSION: 1. Minimal nonobstructing left nephrolithiasis. 2. Otherwise unremarkable study. Abdomen Ultrasound 07/31/18 11:08 IMPRESSION: 1. Cholelithiasis. Assessment & Plan - Diagnosis (1) Abdominal pain Qualifiers: Abdominal location: right upper quadrant Qualified Code(s): R10.11 - Right upper quadrant pain Is this a current diagnosis for this admission?: Yes Plan: Impression: The patient appears to be suffering from acute biliary dysfunction most likely due to the passage of a gallstone. However because of the patient's atypical distribution of elevated liver function studies, since of fever, and leukopenia , other etiologies should be considered. At the hospital for hydration, bowel rest and further evaluation. Recommendations: 1. Admit to [facility], was then n.p.o. after midnight; pain management as needed. Hydration. This can be performed on the internal medicine service with surgery consulting. 2. Await repeat liver function study test results, as well as hepatitis panel; 3. If clinical and laboratory picture consistent with cholecystitis, cholelithiasis and passing of stone, then interval laparoscopic, possible open cholecystectomy with intraoperative cholangiography would be indicated. This was discussed with the patient; postoperative ERCP may be required. (2) Cholelithiasis Qualifiers: Cholelithiasis location: gallbladder Cholecystitis presence: without cholecystitis Biliary obstruction: without biliary obstruction Qualified Code(s): K80.20 - Calculus of gallbladder without cholecystitis without obstruction Is this a current diagnosis for this admission?: Yes Plan: Impression: Cholelithiasis by ultrasonography right upper quadrant tenderness all consistent with cholecystitis due to cholelithiasis. Local picture may be consistent with choledocholithiasis given the elevation of liver function studies. She will require interval cholecystectomy in the future. (3) Transaminitis Is this a current diagnosis for this admission?: Yes - Time Time Spent: 30 to 50 Minutes Smoking Cessation Education: over 10 minutes Medications reviewed and adjusted accordingly: Yes Anticipated discharge: Home - Inpatient Certification Based on my medical assessment, after consideration of the patient's comorbidities, presenting symptoms, or acuity I expect that the services needed warrant INPATIENT care.: Yes I certify that my determination is in accordance with my understanding of Medicare's requirements for reasonable and necessary INPATIENT services [42 CFR 412.3e].: Yes Medical Necessity: Need For IV Fluids, Need for Pain Control, Need for IV Antibiotics
--- NOTE | 2018-07-31 14:06 | PDOC H&P ---
History of Present Illness Admission Date/PCP: 07/31/18 13:38 History of Present Illness: SERGIO KUHN is a 23 year old black female patient with no significant past medical history presented with chief complaint of nausea vomiting and abdominal pain of 3 days duration. Patient describes the pain as colicky and localized to her epigastrium and right upper quadrant area. Of note patient had uncomplicated vaginal delivery in March of this year. He her CMP revealed elevated liver enzymes with AST 253 ALT 616, alkaline phosphatase 270, total bilirubin 3.8 and direct bilirubin is 3.2. Patient denies any fever, chills, cough, palpitation, chest pain, diaphoresis or urinary complaints. She does not have any headache dizziness or blurring of vision. Dr. Zee general surgeon has been consulted. She denied any intravenous drug abuse or any other substance abuse. No family history of biliary disease. Past Surgical History Past Surgical History: Reports: None Social History Smoking Status: Never Smoker Hx Recreational Drug Use: No Hx Prescription Drug Abuse: No - Advance Directive Resuscitation Status: Full Code Family History Family History: None, Reviewed & Not Pertinent Parental Family History Reviewed: Yes Children Family History Reviewed: Yes Sibling(s) Family History Reviewed.: Yes Medication/Allergy Home Medications: Ibuprofen [Motrin 800 mg Tablet] 800 mg PO Q8 #90 tablet 04/21/18 Medroxyprogesterone Acet [Depo-Provera Inj 150 mg/1 ml Vial] 150 mg IM ONCE PRN #1 vial 04/21/18 Allergies/Adverse Reactions: No Known Allergies Allergy (Verified 04/14/18 07:46) Review of Systems Constitutional: ABSENT: chills, fever(s), headache(s), weight gain, weight loss Ears: PRESENT: as per HPI Nose, Mouth, and Throat: PRESENT: as per HPI Respiratory: ABSENT: cough, hemoptysis Gastrointestinal: PRESENT: as per HPI, nausea, vomiting Neurological: ABSENT: abnormal gait, abnormal speech, confusion, dizziness, focal weakness, syncope Physical Exam Vital Signs: Temp Pulse Resp BP Pulse Ox 98.3 F 85 18 113/64 97 07/31/18 09:30 07/31/18 09:30 07/31/18 09:30 07/31/18 09:30 07/31/18 09:30 General appearance: PRESENT: no acute distress, well-developed, well-nourished Head exam: PRESENT: atraumatic, normocephalic Eye exam: PRESENT: conjunctiva pink, EOMI, PERRLA. ABSENT: scleral icterus Ear exam: PRESENT: normal external ear exam Mouth exam: PRESENT: moist, tongue midline Neck exam: ABSENT: carotid bruit, JVD, lymphadenopathy, thyromegaly Respiratory exam: PRESENT: clear to auscultation jaxon. ABSENT: rales, rhonchi, wheezes Cardiovascular exam: PRESENT: RRR. ABSENT: diastolic murmur, rubs, systolic murmur Pulses: PRESENT: normal dorsalis pedis pul Vascular exam: PRESENT: normal capillary refill GI/Abdominal exam: PRESENT: normal bowel sounds, tenderness. ABSENT: distended , guarding, mass, organolmegaly, rebound Rectal exam: PRESENT: deferred Extremities exam: PRESENT: full ROM. ABSENT: calf tenderness, clubbing, pedal edema Neurological exam: PRESENT: alert, awake, oriented to person, oriented to place , oriented to time, oriented to situation, CN II-XII grossly intact. ABSENT: motor sensory deficit Psychiatric exam: PRESENT: appropriate affect, normal mood. ABSENT: homicidal ideation, suicidal ideation Skin exam: PRESENT: dry, intact, warm. ABSENT: cyanosis, rash Results Impressions: Limited or Localized CT 07/31/18 09:39 IMPRESSION: 1. Minimal nonobstructing left nephrolithiasis. 2. Otherwise unremarkable study. Abdomen Ultrasound 07/31/18 11:08 IMPRESSION: 1. Cholelithiasis. Assessment & Plan - Diagnosis (1) Transaminitis Is this a current diagnosis for this admission?: Yes Plan: Etiology is not clear may be patient might have cholecystitis or or she she has choledocholithiasis but which has resolved with the passage of a stone. We will repeat her CMP and also request hepatitis panel. General surgery has been consulted. (2) Cholelithiasis Qualifiers: Cholelithiasis location: gallbladder Cholecystitis presence: without cholecystitis Biliary obstruction: without biliary obstruction Qualified Code(s): K80.20 - Calculus of gallbladder without cholecystitis without obstruction Is this a current diagnosis for this admission?: Yes Plan: No sign of cholecystitis on ultrasound or CT of the abdomen. (3) Hyperbilirubinemia Is this a current diagnosis for this admission?: Yes Plan: direct hyperbilirubinemia
[2018-07-31] MEDS ORDERED: GLUCAGON,HUMAN RECOMB 1 MG INJ SUBCUT PRN (14:07)
[2018-07-31] MEDS ORDERED: DEXTROSE 40% GEL 15 GM TUBE PO PRN ×2 (14:07)
[2018-07-31] MEDS ORDERED: ONDANSETRON HCL INJ/PF 4 MG/2 ML SDV IV PRN (14:07)
[2018-07-31] MEDS ORDERED: DEXTROSE 50%-WATER 25 GM/50 ML DISP.SYRIN IV PRN ×2 (14:07)
[2018-07-31] MEDS: NORMAL SALINE 1000 ML 1,000 ML IV PRN ×3 (14:15→21:10)
[2018-07-31] MEDS: FAMOTIDINE INJ/PF 20 MG/2 ML SDV IV SCH (21:10)
[2018-08-01] MEDS: NORMAL SALINE 1000 ML 1,000 ML IV PRN ×3 (04:44→23:15)
[2018-08-01 06:11] LABS: ABSOLUTE EOSINOPHILS # (AUTO) 0.4 10^3/uL (0.0-0.6); ABSOLUTE LYMPHOCYTES (AUTO) 1.4 10^3/uL (0.5-4.7); ABSOLUTE MONOCYTES (AUTO) 0.3 10^3/uL (0.1-1.4); ABSOLUTE NEUT (AUTO) 0.8 10^3/uL (1.7-8.2); BASOPHILS % (AUTO) 1.3 % (0-2); EOSINOPHILS % (AUTO) 13.5 % (0-6); HEMATOCRIT 37.5 % (36.0-47.0); HEMOGLOBIN 12.1 g/dL (12.0-15.5); LYMPHOCYTES % (AUTO) 46.7 % (13-45); MEAN CORPUSCULAR HEMOGLOBIN 23.6 pg (27.0-33.4); MEAN CORPUSCULAR HGB CONC 32.4 g/dL (32.0-36.0); MEAN CORPUSCULAR VOLUME 73 fl (80-97); PLATELET COUNT 251 10^3/uL (150-450); RED BLOOD COUNT 5.15 10^6/uL (3.72-5.28); RED CELL DISTRIBUTION WIDTH 15.2 % (11.5-14.0); SEGMENTED NEUTROPHILS % (AUTO) 27.5 % (42-78); TOTAL CELLS COUNTED % (AUTO) 100 %; WHITE BLOOD COUNT 3.1 10^3/uL (4.0-10.5)
[2018-08-01 06:32] LABS: ALANINE AMINOTRANSFERASE 367 U/L (9-52); ALBUMIN 3.1 g/dL (3.5-5.0); ALKALINE PHOSPHATASE 238 U/L (38-126); ANION GAP 11 (5-19); ASPARTATE AMINO TRANSFERASE 103 U/L (14-36); BILIRUBIN,TOTAL 2.5 mg/dL (0.2-1.3); BLOOD UREA NITROGEN 5 mg/dL (7-20); CALCIUM 8.9 mg/dL (8.4-10.2); CARBON DIOXIDE 19 mmol/L (22-30); CHLORIDE 113 mmol/L (98-107); CHOLESTEROL 137.22 mg/dL (0-200); GLUCOSE 75 mg/dL (75-110); POTASSIUM 4.6 mmol/L (3.6-5.0); SODIUM 143.1 mmol/L (137-145); TOTAL PROTEIN 6.1 g/dL (6.3-8.2); TRIGLYCERIDES 73 mg/dL (<150)
[2018-08-01 06:44] LABS: DIRECT LDL 83 mg/dL (<100)
--- NOTE | 2018-08-01 09:31 | PDOC PROGRESS REPORT ---
Subjective Progress Note for:: 08/01/18 Subjective:: This is 23 years old black female patient admitted yesterday for epigastric and right upper quadrant pain. Her liver chemistries are trending down a CT from 253 10/21/2002, ALT from 616-367, alkaline phosphatase from 270- 238 and her total bilirubin from 3.8-2.5. Her symptoms are improving. Patient scheduled for lap vida tomorrow Reason For Visit: TRANSAMINITIS,HYPERBILIRUBINEMIA,CHOLELITHIASIS Physical Exam Vital Signs: Temp Pulse Resp BP Pulse Ox 98.4 F 106 H 18 116/67 97 08/01/18 07:45 08/01/18 07:45 08/01/18 07:45 08/01/18 07:45 08/01/18 07:45 Intake & Output 07/31/18 08/01/18 08/02/18 06:59 06:59 06:59 Intake Total 1946 Output Total 700 Balance 1246 General appearance: PRESENT: no acute distress, well-developed, well-nourished Head exam: PRESENT: atraumatic, normocephalic Eye exam: PRESENT: conjunctiva pink, EOMI, PERRLA. ABSENT: scleral icterus Ear exam: PRESENT: normal external ear exam Mouth exam: PRESENT: moist, tongue midline Neck exam: ABSENT: carotid bruit, JVD, lymphadenopathy, thyromegaly Respiratory exam: PRESENT: clear to auscultation jaxon. ABSENT: rales, rhonchi, wheezes Cardiovascular exam: PRESENT: RRR. ABSENT: diastolic murmur, rubs, systolic murmur Pulses: PRESENT: normal dorsalis pedis pul Vascular exam: PRESENT: normal capillary refill GI/Abdominal exam: PRESENT: normal bowel sounds, soft. ABSENT: distended, guarding, mass, organolmegaly, rebound, tenderness Rectal exam: PRESENT: deferred Extremities exam: PRESENT: full ROM. ABSENT: calf tenderness, clubbing, pedal edema Neurological exam: PRESENT: alert, awake, oriented to person, oriented to place , oriented to time, oriented to situation, CN II-XII grossly intact. ABSENT: motor sensory deficit Psychiatric exam: PRESENT: appropriate affect, normal mood. ABSENT: homicidal ideation, suicidal ideation Skin exam: PRESENT: dry, intact, warm. ABSENT: cyanosis, rash Results Laboratory Results: 08/01/18 05:50 08/01/18 05:50 08/01/18 08/01/18 05:50 05:50 WBC 3.1 L RBC 5.15 Hgb 12.1 Hct 37.5 MCV 73 L MCH 23.6 L MCHC 32.4 RDW 15.2 H Plt Count 251 Seg Neutrophils % 27.5 L Lymphocytes % 46.7 H Monocytes % 11.0 Eosinophils % 13.5 H Basophils % 1.3 Absolute Neutrophils 0.8 L Absolute Lymphocytes 1.4 Absolute Monocytes 0.3 Absolute Eosinophils 0.4 Absolute Basophils 0.0 Sodium 143.1 Potassium 4.6 Chloride 113 H Carbon Dioxide 19 L Anion Gap 11 BUN 5 L Creatinine 0.57 Est GFR ( Amer) > 60 Est GFR (Non-Af Amer) > 60 Glucose 75 Calcium 8.9 Total Bilirubin 2.5 H AST 103 H ALT 367 H Alkaline Phosphatase 238 H Total Protein 6.1 L Albumin 3.1 L Triglycerides 73 Cholesterol 137.22 LDL Cholesterol Direct 83 VLDL Cholesterol 15.0 HDL Cholesterol 40 Impressions: Limited or Localized CT 07/31/18 09:39 IMPRESSION: 1. Minimal nonobstructing left nephrolithiasis. 2. Otherwise unremarkable study. Abdomen Ultrasound 07/31/18 11:08 IMPRESSION: 1. Cholelithiasis. Assessment & Plan - Diagnosis (1) Transaminitis Is this a current diagnosis for this admission?: Yes Plan: Improving (2) Cholelithiasis Qualifiers: Cholelithiasis location: gallbladder Cholecystitis presence: without cholecystitis Biliary obstruction: without biliary obstruction Qualified Code(s): K80.20 - Calculus of gallbladder without cholecystitis without obstruction Is this a current diagnosis for this admission?: Yes Plan: Scheduled for laparoscopic cholecystectomy for tomorrow. (3) Hyperbilirubinemia Is this a current diagnosis for this admission?: Yes Plan: Improving
[2018-08-01] MEDS: FAMOTIDINE INJ/PF 20 MG/2 ML SDV IV SCH ×2 (09:44→21:28)
[2018-08-01] MEDS ORDERED: ENOXAPARIN SODIUM INJ 40 MG/0.4 ML DISP.SYRIN SUBCUT SCH (10:00)
[2018-08-01] MEDS: MORPHINE SULFATE 10 MG/ML INJ IV PRN ×2 (10:53→21:29)
--- NOTE | 2018-08-01 20:53 | PDOC PROGRESS REPORT ---
Subjective Progress Note for:: 08/01/18 Subjective:: more comfortable Reason For Visit: TRANSAMINITIS,HYPERBILIRUBINEMIA,CHOLELITHIASIS Physical Exam Vital Signs: Temp Pulse Resp BP Pulse Ox 98.6 F 70 18 104/64 100 08/01/18 15:43 08/01/18 15:43 08/01/18 15:43 08/01/18 15:43 08/01/18 15:43 Intake & Output 07/31/18 08/01/18 08/02/18 06:59 06:59 06:59 Intake Total 1946 2100 Output Total 700 400 Balance 1246 1700 Exam: abd is soft with practically no tenderness Results Laboratory Results: 08/01/18 05:50 08/01/18 05:50 08/01/18 08/01/18 05:50 05:50 WBC 3.1 L RBC 5.15 Hgb 12.1 Hct 37.5 MCV 73 L MCH 23.6 L MCHC 32.4 RDW 15.2 H Plt Count 251 Seg Neutrophils % 27.5 L Lymphocytes % 46.7 H Monocytes % 11.0 Eosinophils % 13.5 H Basophils % 1.3 Absolute Neutrophils 0.8 L Absolute Lymphocytes 1.4 Absolute Monocytes 0.3 Absolute Eosinophils 0.4 Absolute Basophils 0.0 Sodium 143.1 Potassium 4.6 Chloride 113 H Carbon Dioxide 19 L Anion Gap 11 BUN 5 L Creatinine 0.57 Est GFR ( Amer) > 60 Est GFR (Non-Af Amer) > 60 Glucose 75 Calcium 8.9 Total Bilirubin 2.5 H AST 103 H ALT 367 H Alkaline Phosphatase 238 H Total Protein 6.1 L Albumin 3.1 L Triglycerides 73 Cholesterol 137.22 LDL Cholesterol Direct 83 VLDL Cholesterol 15.0 HDL Cholesterol 40 Impressions: Limited or Localized CT 07/31/18 09:39 IMPRESSION: 1. Minimal nonobstructing left nephrolithiasis. 2. Otherwise unremarkable study. Abdomen Ultrasound 07/31/18 11:08 IMPRESSION: 1. Cholelithiasis. Assessment & Plan - Diagnosis (1) passage of CBD stone Is this a current diagnosis for this admission?: Yes - Time Time Spent with patient: 15-24 minutes - Inpatient Certification Medical Necessity: Need For IV Fluids, Need for IV Antibiotics, Need for Surgery , Risk of Complication if Not Cared For in Hospital - Plan Summary Plan Summary: LFT's are elevated but coming down. Will repeat in am and if continuos to go down then will do lap vida with possible cholangiogram
[2018-08-02] MEDS: MORPHINE SULFATE 10 MG/ML INJ IV PRN (05:03)
[2018-08-02 06:19] LABS: ABSOLUTE EOSINOPHILS # (AUTO) 0.4 10^3/uL (0.0-0.6); ABSOLUTE LYMPHOCYTES (AUTO) 1.4 10^3/uL (0.5-4.7); ABSOLUTE MONOCYTES (AUTO) 0.4 10^3/uL (0.1-1.4); BASOPHILS % (AUTO) 1.3 % (0-2); EOSINOPHILS % (AUTO) 12.8 % (0-6); HEMATOCRIT 36.1 % (36.0-47.0); HEMOGLOBIN 11.9 g/dL (12.0-15.5); LYMPHOCYTES % (AUTO) 43.4 % (13-45); MEAN CORPUSCULAR HGB CONC 33.1 g/dL (32.0-36.0); MEAN CORPUSCULAR VOLUME 73 fl (80-97); MONOCYTES % (AUTO) 12.1 % (3-13); PLATELET COUNT 245 10^3/uL (150-450); RED BLOOD COUNT 4.97 10^6/uL (3.72-5.28); RED CELL DISTRIBUTION WIDTH 14.8 % (11.5-14.0); SEGMENTED NEUTROPHILS % (AUTO) 30.4 % (42-78); TOTAL CELLS COUNTED % (AUTO) 100 %; WHITE BLOOD COUNT 3.2 10^3/uL (4.0-10.5)
[2018-08-02 06:34] LABS: ALANINE AMINOTRANSFERASE 321 U/L (9-52); ALBUMIN 3.5 g/dL (3.5-5.0); ALKALINE PHOSPHATASE 271 U/L (38-126); ASPARTATE AMINO TRANSFERASE 107 U/L (14-36); BILIRUBIN,DIRECT 2.5 mg/dL (0.0-0.4); BILIRUBIN,TOTAL 3.1 mg/dL (0.2-1.3); TOTAL PROTEIN 6.5 g/dL (6.3-8.2)
[2018-08-02 06:38] LABS: HEPATITIS A AB IGM Negative (Negative); HEPATITIS B CORE AB IGM Negative (Negative); HEPATITS B SURFACE ANTIGEN Negative (Negative)
[2018-08-02] MEDS ORDERED: BUPIVACAINE HCL 0.25% /EPINEPHRINE INJ/PF 30 ML SDV ONE (07:10)
[2018-08-02 07:17] LABS: HEPATITIS C VIRUS ANTIBODY <0.1 s/co ratio (0.0-0.9)
[2018-08-02] MEDS ORDERED: CEFAZOLIN INJ 1 GM VIAL ONE (08:22)
[2018-08-02] MEDS ORDERED: MEPERIDINE HCL/PF INJ 25 MG/1 ML DISP.SYRIN IV PRN (09:31)
[2018-08-02] MEDS ORDERED: ONDANSETRON HCL INJ/PF 4 MG/2 ML SDV IV PRN (09:31)
[2018-08-02] MEDS ORDERED: PROMETHAZINE HCL INJ 25 MG/1 ML VIAL IV PRN ×2 (09:31)
[2018-08-02] MEDS ORDERED: FENTANYL CITRATE INJ/PF 100 MCG/2 ML AMPUL IV PRN ×3 (09:31)
[2018-08-02] MEDS ORDERED: DIPHENHYDRAMINE HCL 50 MG/ML VIAL IV PRN (09:31)
--- NOTE | 2018-08-02 11:22 | OPERATIVE REPORT E ---
Operative Report NAME: SERGIO KUHN : 1995 AGE: 23Y DATE OF SURGERY: 08/02/2018 ROOM: 226 PREOPERATIVE DIAGNOSIS: Acute on chronic cholecystitis with possible common bile duct stone. POSTOPERATIVE DIAGNOSIS: Acute on chronic cholecystitis with common bile duct stone. OPERATION: Laparoscopic cholecystectomy and intraoperative cholangiogram. SURGEON: KAREN RUBI M.D. ANESTHESIA: General. INDICATIONS: This 23-year-old female came in with abdominal pains. She was noted to have her gallstones in the gallbladder but her LFTs were elevated. The next day her LFTs went down on 08/01/2018. She was taken to the OR on 08/02/2018. However, her LFTs on the day of surgery slightly bumped up again but not quite as high as on admission. DESCRIPTION OF PROCEDURE: After adequate general anesthesia, the patient was placed in a supine position and the abdomen prepped and draped in the usual sterile fashion. Appropriate time out was then called. Next, an infraumbilical incision was made, the fascia identified and divided between 2 Maira clamps. Finger dissection through the fascia into the peritoneum was done with the aid of Maira clamps. The abdominal cavity was then entered and a Keyur trocar inserted through the abdominal cavity and CO2 insufflated to a pressure of 15 mmHg. Three other trocars were placed, a 12 mm in the subxiphoid and two 5 mm in the right upper quadrant. The gallbladder was noted to be quite tense and this was then emptied with a long needle by aspiration. The gallbladder was noted to be slightly thickened wall and with a lot of adhesions indicating chronic cholecystitis. The gallbladder was subsequently grasped at the puncture site and elevated over the liver. Adhesions were lysed bluntly and with the use of the harmonic kaley. The cystic duct was then identified and dissected and noted to be quite enlarged. The critical view of safety was then identified after dissecting the cystic artery. The cystic artery was then clipped and divided with the use of harmonic kaley. This left the cystic duct. A large clip was then placed over the cystic duct close to the gallbladder. The cystic duct just proximal to the clip was then partially divided with scissors. A cholangiocatheter was then placed through a 14-gauge intracath with the needle removed and intracath left in place. Cholangiocatheter was then placed through the 14-gauge needle and intracath and placed into the cystic duct. The cystic duct was then clipped with a hemoclip over the cholangiocatheter. Cholangiogram was then performed and noted to have a stone in the distal common bile duct. It appeared no other stones were noted. The cystic duct was dilated as well as the common bile duct. This was in contrast to the ultrasound saying no dilatation of the common bile duct. At any rate, at this point I called Dr. Rojas and talked to him about doing an ERCP, which he said he will do later today. Next, the clip over the cystic duct was removed and cholangiocatheter completely removed. The cystic duct was then clipped twice proximal to the incision. The cystic duct was then completely divided. The gallbladder was then taken off the liver bed with use of harmonic kaley, placed in an Endobag, and pulled out through the umbilical port. There appeared to be at least 1 small palpable stone in the gallbladder. Next, a PDS loop tie was then placed just below the cystic duct clips, tying off the cystic duct. The cystic duct was noted to be close to the common bile duct. Next, all the operative site showed good hemostasis. About 20 mL of Marcaine was injected just around the liver bed for pain management postoperatively. All the trocars were removed and no other bleeding noted along the trocar sites. CO2 was allowed to come out of the trocar sites. The fascial defect at the infraumbilical area was then closed with a dwahtl-tv-[id number] suture using #1 Vicryl. All the skin incisions were then closed with running subcuticular using 4-0 Vicryl undyed. Sterile Steri-Strips were placed over the incision sites. The patient tolerated the procedure well. Needle, instrument, and sponge counts were all correct. Estimated blood loss was about 10 mL. Patient was brought to the recovery room in satisfactory condition and extubated. DICTATING PHYSICIAN: KAREN RUBI M.D. [id number] PHY#: [id number] ID: [id number] JOB#: [id number] ACCT: [id number] cc:KAREN RUBI M.D. >
[2018-08-02] MEDS: FAMOTIDINE INJ/PF 20 MG/2 ML SDV IV SCH ×2 (13:54→22:32)
[2018-08-02] MEDS ORDERED: CEFAZOLIN 1 GM/D5W RTU 1 GM/50 ML RTUPB IV SCH (14:00)
--- NOTE | 2018-08-02 14:28 | PDOC PROGRESS REPORT ---
Subjective Progress Note for:: 08/02/18 Subjective:: Patient is status post laparoscopic cholecystectomy with intraoperative cholangiogram that was positive for distal common bile duct stone. Gastroenterology was consulted for possible ERCP tomorrow. Patient denies any nausea and pain is well controlled. She is hungry and wants to eat. Reason For Visit: TRANSAMINITIS,HYPERBILIRUBINEMIA,CHOLELITHIASIS Physical Exam Vital Signs: Temp Pulse Resp BP Pulse Ox 98.3 F 87 16 110/71 99 08/02/18 11:54 08/02/18 11:54 08/02/18 11:54 08/02/18 11:54 08/02/18 12:02 Intake & Output 08/01/18 08/02/18 08/03/18 06:59 06:59 06:59 Intake Total 1946 3600 2850 Output Total 700 400 20 Balance 1246 3200 2830 Weight 207 lb 14.334 oz General appearance: PRESENT: no acute distress, cooperative Eye exam: PRESENT: EOMI. ABSENT: conjunctival injection Ear exam: ABSENT: bleeding, drainage Neck exam: ABSENT: meningismus, tenderness Respiratory exam: PRESENT: clear to auscultation jaxon. ABSENT: accessory muscle use Cardiovascular exam: PRESENT: RRR. ABSENT: diastolic murmur, systolic murmur Pulses: PRESENT: normal radial pulses GI/Abdominal exam: PRESENT: soft. ABSENT: ascites, distended Rectal exam: PRESENT: deferred Extremities exam: ABSENT: pedal edema Neurological exam: PRESENT: alert, altered, awake, oriented to person, oriented to place, oriented to time, oriented to situation Psychiatric exam: ABSENT: agitated, anxious, homicidal ideation, suicidal ideation Results Laboratory Results: 08/02/18 06:03 08/01/18 05:50 08/02/18 08/02/18 06:03 06:03 WBC 3.2 L RBC 4.97 Hgb 11.9 L Hct 36.1 MCV 73 L MCH 24.0 L MCHC 33.1 RDW 14.8 H Plt Count 245 Seg Neutrophils % 30.4 L Lymphocytes % 43.4 Monocytes % 12.1 Eosinophils % 12.8 H Basophils % 1.3 Absolute Neutrophils 1.0 L Absolute Lymphocytes 1.4 Absolute Monocytes 0.4 Absolute Eosinophils 0.4 Absolute Basophils 0.0 Total Bilirubin 3.1 H AST 107 H ALT 321 H Alkaline Phosphatase 271 H Total Protein 6.5 Albumin 3.5 Impressions: Limited or Localized CT 07/31/18 09:39 IMPRESSION: 1. Minimal nonobstructing left nephrolithiasis. 2. Otherwise unremarkable study. Abdomen Ultrasound 07/31/18 11:08 IMPRESSION: 1. Cholelithiasis. Assessment & Plan - Diagnosis (1) Acute and chronic cholecystitis Is this a current diagnosis for this admission?: Yes Plan: Status post laparoscopic cholecystectomy today (2) Choledocholithiasis Is this a current diagnosis for this admission?: Yes Plan: GI consulted for possible ERCP tomorrow (3) Abdominal pain Qualifiers: Abdominal location: right upper quadrant Qualified Code(s): R10.11 - Right upper quadrant pain Is this a current diagnosis for this admission?: Yes Plan: Due to cholecystitis and choledocholithiasis (4) Cholelithiasis Qualifiers: Cholelithiasis location: gallbladder Cholecystitis presence: without cholecystitis Biliary obstruction: without biliary obstruction Qualified Code(s): K80.20 - Calculus of gallbladder without cholecystitis without obstruction Is this a current diagnosis for this admission?: Yes Plan: Status post laparoscopic cholecystectomy today (5) Hyperbilirubinemia Is this a current diagnosis for this admission?: Yes Plan: monitor (6) Transaminitis Is this a current diagnosis for this admission?: Yes Plan: Monitor
--- NOTE | 2018-08-02 16:50 | RADIOLOGY REPORT (SQ) ---
EXAM DESCRIPTION: CHOLANGIOGRAM OPERATIVE COMPLETED DATE/TIME: 08/02/2018 11:34 am REASON FOR STUDY: CHOLANGIOGRAM IN OR COMPARISON: CT abdomen pelvis 07/31/2018 Abdominal ultrasound 07/31/2018 FLUOROSCOPY TIME: 0.4 minutes 5 digital radiographic images saved to PACS. TECHNIQUE: Cinegraphic images were obtained from an intraoperative cholangiogram. LIMITATIONS: None. FINDINGS: Contrast is injected in the cystic duct stump. Cystic duct, right and left visualized int rahepatic and common hepatic duct are unremarkable. Common bile duct is mildly dilated. 3 filling defects in the distal common duct are present worriso me for retained small stones. No passage of contrast into the duodenum. This report was discussed w zafar Crawford IMPRESSION: Stones in the distal common bile duct. No passage of contrast into the duodenum. COMMENT: Quality ID [id number]: Final reports for procedures using fluoroscopy that document radiation exp osure indices, or exposure time and number of fluorographic images (if radiation exposure indices are not available) TECHNICAL DOCUMENTATION: JOB ID: [id number] [employer]- All Rights Reserved Reading location - IP/workstation name: [email or web address]
--- NOTE | 2018-08-02 17:59 | PDOC CONSULTATION ---
Consultation Consult Date: 08/02/18 History of Present Illness Admission Date/PCP: 07/31/18 13:38 History of Present Illness: SERGIO KUHN is a 23 year old femalePatient was admitted for recurrent abdominal pain and jaundice. She has been having pain for many weeks but this got worse a few days prior to being admitted. On admission her bilirubin was 3.8 with AST of 253 and ALT of 616 and alkaline phosphatase of 270. This morning she still had a bilirubin of 3. She had laparoscopic cholecystectomy today with intraoperative cholangiogram that was positive for common bile duct stones. Hepatitis A, B, and C serology were negative Past Medical History Psychiatric Medical History: Denies: Depression Past Surgical History Past Surgical History: Reports: None Social History Smoking Status: Never Smoker Frequency of Alcohol Use: None Hx Recreational Drug Use: No Drugs: None Hx Prescription Drug Abuse: No - Advance Directive Resuscitation Status: Full Code Family History Family History: None, Reviewed & Not Pertinent Parental Family History Reviewed: No Children Family History Reviewed: NA Sibling(s) Family History Reviewed.: NA Medication/Allergy Home Medications: No Home Medications 07/31/18 Allergies/Adverse Reactions: No Known Allergies Allergy (Verified 04/14/18 07:46) Review of Systems All systems: reviewed and no additional remarkable complaints except as stated Physical Exam Vital Signs: Temp Pulse Resp BP Pulse Ox 99.0 F 44 L 17 127/80 H 96 08/02/18 16:42 08/02/18 16:42 08/02/18 16:42 08/02/18 16:42 08/02/18 16:42 Intake & Output 08/01/18 08/02/18 08/03/18 06:59 06:59 06:59 Intake Total 1946 3600 3300 Output Total 700 400 720 Balance 1246 3200 2580 Weight 94.3 kg Exam: General: Patient is alert and looks well. HEENT: There is no pallor but she is jaundice. PERRLA. Oropharynx normal Respiratory: No chest deformity. No respiratory distress. Chest wall palpitation was unremarkable. Breath sounds were normal Cardiovascular: Heart sounds 1 and 2 normal with no murmurs. Abdominal: Not distended. Soft with evidence for recent surgery. Liver and spleen not palpable. No ascites demonstrated. Bowel sounds active. Rectal examination was deferred. Extremities: No edema Neurological: Alert and oriented x4. Grossly nonfocal. Normal speech Skin: No significant rash Psychological: Normal affect Results Laboratory Results: 08/02/18 06:03 08/01/18 05:50 08/02/18 08/02/18 06:03 06:03 WBC 3.2 L RBC 4.97 Hgb 11.9 L Hct 36.1 MCV 73 L MCH 24.0 L MCHC 33.1 RDW 14.8 H Plt Count 245 Seg Neutrophils % 30.4 L Lymphocytes % 43.4 Monocytes % 12.1 Eosinophils % 12.8 H Basophils % 1.3 Absolute Neutrophils 1.0 L Absolute Lymphocytes 1.4 Absolute Monocytes 0.4 Absolute Eosinophils 0.4 Absolute Basophils 0.0 Total Bilirubin 3.1 H AST 107 H ALT 321 H Alkaline Phosphatase 271 H Total Protein 6.5 Albumin 3.5 Impressions: Limited or Localized CT 07/31/18 09:39 IMPRESSION: 1. Minimal nonobstructing left nephrolithiasis. 2. Otherwise unremarkable study. Abdomen Ultrasound 07/31/18 11:08 IMPRESSION: 1. Cholelithiasis. Cholangiogram 08/02/18 00:00 IMPRESSION: Stones in the distal common bile duct. No passage of contrast into the duodenum. Assessment & Plan - Diagnosis (1) Choledocholithiasis Is this a current diagnosis for this admission?: Yes Plan: She has symptoms, laboratory evidence and intraoperative cholangiogram evidence for choledocholithiasis. The need for an ERCP including the risks and benefits were explained to the patient. This will be performed in the operating room (2) Jaundice Is this a current diagnosis for this admission?: Yes (3) Cholelithiasis Qualifiers: Cholelithiasis location: gallbladder Cholecystitis presence: without cholecystitis Biliary obstruction: without biliary obstruction Qualified Code(s): K80.20 - Calculus of gallbladder without cholecystitis without obstruction Is this a current diagnosis for this admission?: Yes
[2018-08-02] MEDS: OXYCODONE-ACETAMINOPHEN 5-325 MG TABLET PO PRN (20:22)
[2018-08-02] MEDS: PIPERACILLIN SODIUM/TAZOBACTAM 3.375 GM in NORMAL SALINE 100 ML IV SCH (22:32)
[2018-08-02] MEDS: NORMAL SALINE 1000 ML 1,000 ML IV PRN (22:33)
[2018-08-03] MEDS: OXYCODONE-ACETAMINOPHEN 5-325 MG TABLET PO PRN (02:36)
[2018-08-03] MEDS: PIPERACILLIN SODIUM/TAZOBACTAM 3.375 GM in NORMAL SALINE 100 ML IV SCH ×4 (02:36→21:24)
[2018-08-03 06:36] LABS: ABSOLUTE BASOPHILS # (AUTO) 0.1 10^3/uL (0.0-0.2); ABSOLUTE LYMPHOCYTES (AUTO) 1.7 10^3/uL (0.5-4.7); ABSOLUTE MONOCYTES (AUTO) 0.6 10^3/uL (0.1-1.4); ABSOLUTE NEUT (AUTO) 3.8 10^3/uL (1.7-8.2); BASOPHILS % (AUTO) 0.9 % (0-2); EOSINOPHILS % (AUTO) 0.7 % (0-6); HEMATOCRIT 35.6 % (36.0-47.0); HEMOGLOBIN 11.8 g/dL (12.0-15.5); LYMPHOCYTES % (AUTO) 27.7 % (13-45); MEAN CORPUSCULAR HGB CONC 33.3 g/dL (32.0-36.0); MEAN CORPUSCULAR VOLUME 72 fl (80-97); MONOCYTES % (AUTO) 9.9 % (3-13); PLATELET COUNT 240 10^3/uL (150-450); RED BLOOD COUNT 4.94 10^6/uL (3.72-5.28); RED CELL DISTRIBUTION WIDTH 15.4 % (11.5-14.0); SEGMENTED NEUTROPHILS % (AUTO) 60.8 % (42-78); TOTAL CELLS COUNTED % (AUTO) 100 %; WHITE BLOOD COUNT 6.3 10^3/uL (4.0-10.5)
[2018-08-03 07:07] LABS: ALANINE AMINOTRANSFERASE 408 U/L (9-52); ALBUMIN 3.2 g/dL (3.5-5.0); ALKALINE PHOSPHATASE 258 U/L (38-126); ANION GAP 11 (5-19); ASPARTATE AMINO TRANSFERASE 269 U/L (14-36); BILIRUBIN,DIRECT 3.5 mg/dL (0.0-0.4); BILIRUBIN,TOTAL 4.4 mg/dL (0.2-1.3); BLOOD UREA NITROGEN 5 mg/dL (7-20); CALCIUM 9.2 mg/dL (8.4-10.2); CARBON DIOXIDE 21 mmol/L (22-30); CHLORIDE 109 mmol/L (98-107); GLUCOSE 107 mg/dL (75-110); POTASSIUM 4.1 mmol/L (3.6-5.0); SODIUM 141.3 mmol/L (137-145); TOTAL PROTEIN 6.3 g/dL (6.3-8.2)
[2018-08-03] MEDS: MORPHINE SULFATE 10 MG/ML INJ IV PRN (08:58)
[2018-08-03] MEDS ORDERED: METOCLOPRAMIDE HCL INJ/PF 10 MG/2 ML SDV ONE (09:15)
[2018-08-03] MEDS ORDERED: GLYCOPYRROLATE 1 MG/5 ML SYRINGE ONE (09:15)
[2018-08-03] MEDS ORDERED: LIDOCAINE 2% INJ-PF (20 MG/ML) 2 ML AMPUL ONE (09:15)
[2018-08-03] MEDS ORDERED: DEXAMETHASONE SOD PHOSPHATE INJ 4 MG/1 ML VIAL ONE ×2 (09:15→17:45)
[2018-08-03] MEDS ORDERED: KETOROLAC TROMETHAMINE 60 MG/2 ML SDV ONE (09:15)
[2018-08-03] MEDS ORDERED: NEOSTIGMINE METHYLSULFATE 10 MG/10 ML VIAL ONE (09:15)
[2018-08-03] MEDS ORDERED: SUCCINYLCHOLINE CHLORIDE INJ 200 MG/10 ML VIAL ONE ×2 (09:15→13:50)
[2018-08-03] MEDS ORDERED: ONDANSETRON HCL INJ/PF 4 MG/2 ML SDV ONE ×2 (09:15→17:45)
[2018-08-03] MEDS ORDERED: ROCURONIUM BROMIDE INJ 50 MG/5 ML VIAL IV ONE (09:15)
--- NOTE | 2018-08-03 10:57 | PDOC PROGRESS REPORT ---
Subjective Progress Note for:: 08/03/18 Subjective:: Feels well. Minimal abdominal pain. Reason For Visit: TRANSAMINITIS,HYPERBILIRUBINEMIA,CHOLELITHIASIS Physical Exam Vital Signs: Temp Pulse Resp BP Pulse Ox 99.4 F 97 17 121/65 97 08/03/18 07:58 08/03/18 07:58 08/03/18 07:58 08/03/18 07:58 08/03/18 07:58 Intake & Output 08/02/18 08/03/18 08/04/18 06:59 06:59 06:59 Intake Total 3600 4100 100 Output Total 400 720 Balance 3200 3380 100 Weight 94.3 kg 94 kg General appearance: PRESENT: no acute distress, cooperative Respiratory exam: PRESENT: clear to auscultation jaxon Cardiovascular exam: PRESENT: RRR GI/Abdominal exam: PRESENT: other - Soft, minimal tenderness at the incisions. Extremities exam: PRESENT: other - No swelling and no tenderness Results Laboratory Results: 08/03/18 06:15 08/03/18 06:15 08/03/18 08/03/18 06:15 06:15 WBC 6.3 RBC 4.94 Hgb 11.8 L Hct 35.6 L MCV 72 L MCH 24.0 L MCHC 33.3 RDW 15.4 H Plt Count 240 Seg Neutrophils % 60.8 Lymphocytes % 27.7 Monocytes % 9.9 Eosinophils % 0.7 Basophils % 0.9 Absolute Neutrophils 3.8 Absolute Lymphocytes 1.7 Absolute Monocytes 0.6 Absolute Eosinophils 0.0 Absolute Basophils 0.1 Sodium 141.3 Potassium 4.1 Chloride 109 H Carbon Dioxide 21 L Anion Gap 11 BUN 5 L Creatinine 0.62 Est GFR ( Amer) > 60 Est GFR (Non-Af Amer) > 60 Glucose 107 Calcium 9.2 Total Bilirubin 4.4 H AST 269 H ALT 408 H Alkaline Phosphatase 258 H Total Protein 6.3 Albumin 3.2 L Impressions: Limited or Localized CT 07/31/18 09:39 IMPRESSION: 1. Minimal nonobstructing left nephrolithiasis. 2. Otherwise unremarkable study. Abdomen Ultrasound 07/31/18 11:08 IMPRESSION: 1. Cholelithiasis. Cholangiogram 08/02/18 00:00 IMPRESSION: Stones in the distal common bile duct. No passage of contrast into the duodenum. Assessment & Plan - Diagnosis (1) Choledocholithiasis Is this a current diagnosis for this admission?: Yes Plan: Status post laparoscopic cholecystectomy with intraoperative cholangiogram. Pending ERCP for removal of her common bile duct stones.
[2018-08-03] MEDS: FAMOTIDINE INJ/PF 20 MG/2 ML SDV IV SCH ×2 (11:14→21:22)
[2018-08-03] MEDS: NORMAL SALINE 1000 ML 1,000 ML IV PRN (11:15)
--- NOTE | 2018-08-03 12:59 | PDOC PROGRESS REPORT ---
Subjective Progress Note for:: 08/03/18 Subjective:: Patient is status post laparoscopic cholecystectomy with intraoperative cholangiogram that was positive for distal common bile duct stone 08/02/2018. Patient tolerated dinner last night with no problems. Her pain is under control. She is scheduled for ERCP later today. Reason For Visit: TRANSAMINITIS,HYPERBILIRUBINEMIA,CHOLELITHIASIS Physical Exam Vital Signs: Temp Pulse Resp BP Pulse Ox 98.3 F 91 17 107/66 100 08/03/18 11:32 08/03/18 11:32 08/03/18 11:32 08/03/18 11:32 08/03/18 11:32 Intake & Output 08/02/18 08/03/18 08/04/18 06:59 06:59 06:59 Intake Total 3600 5100 100 Output Total 400 720 Balance 3200 4380 100 Weight 207 lb 14.334 oz 207 lb 3.752 oz General appearance: PRESENT: no acute distress, cooperative Head exam: PRESENT: atraumatic, normocephalic Eye exam: PRESENT: EOMI. ABSENT: conjunctival injection Ear exam: ABSENT: bleeding, drainage Neck exam: ABSENT: meningismus, tenderness Respiratory exam: PRESENT: clear to auscultation jaxon. ABSENT: accessory muscle use Cardiovascular exam: PRESENT: RRR. ABSENT: diastolic murmur, systolic murmur Pulses: PRESENT: normal radial pulses GI/Abdominal exam: PRESENT: normal bowel sounds, soft, tenderness - Very mild. ABSENT: ascites Rectal exam: PRESENT: deferred Extremities exam: ABSENT: joint swelling, pedal edema Musculoskeletal exam: PRESENT: normal inspection. ABSENT: deformity Neurological exam: PRESENT: alert, altered, awake, oriented to person, oriented to place, oriented to time, oriented to situation Psychiatric exam: PRESENT: appropriate affect. ABSENT: agitated, anxious, homicidal ideation, suicidal ideation Results Laboratory Results: 08/03/18 06:15 08/03/18 06:15 08/03/18 08/03/18 06:15 06:15 WBC 6.3 RBC 4.94 Hgb 11.8 L Hct 35.6 L MCV 72 L MCH 24.0 L MCHC 33.3 RDW 15.4 H Plt Count 240 Seg Neutrophils % 60.8 Lymphocytes % 27.7 Monocytes % 9.9 Eosinophils % 0.7 Basophils % 0.9 Absolute Neutrophils 3.8 Absolute Lymphocytes 1.7 Absolute Monocytes 0.6 Absolute Eosinophils 0.0 Absolute Basophils 0.1 Sodium 141.3 Potassium 4.1 Chloride 109 H Carbon Dioxide 21 L Anion Gap 11 BUN 5 L Creatinine 0.62 Est GFR ( Amer) > 60 Est GFR (Non-Af Amer) > 60 Glucose 107 Calcium 9.2 Total Bilirubin 4.4 H AST 269 H ALT 408 H Alkaline Phosphatase 258 H Total Protein 6.3 Albumin 3.2 L Impressions: Limited or Localized CT 07/31/18 09:39 IMPRESSION: 1. Minimal nonobstructing left nephrolithiasis. 2. Otherwise unremarkable study. Abdomen Ultrasound 07/31/18 11:08 IMPRESSION: 1. Cholelithiasis. Cholangiogram 08/02/18 00:00 IMPRESSION: Stones in the distal common bile duct. No passage of contrast into the duodenum. Assessment & Plan - Diagnosis (1) Acute and chronic cholecystitis Is this a current diagnosis for this admission?: Yes Plan: status post laparoscopic cholecystectomy with intraoperative cholangiogram that was positive for distal common bile duct stone .08/02/2018. (2) Choledocholithiasis Is this a current diagnosis for this admission?: Yes Plan: Scheduled for ERCP today (3) Abdominal pain Qualifiers: Abdominal location: right upper quadrant Qualified Code(s): R10.11 - Right upper quadrant pain Is this a current diagnosis for this admission?: Yes Plan: Due to cholecystitis and choledocholithiasis, improved (4) Cholelithiasis Qualifiers: Cholelithiasis location: gallbladder Cholecystitis presence: without cholecystitis Biliary obstruction: without biliary obstruction Qualified Code(s): K80.20 - Calculus of gallbladder without cholecystitis without obstruction Is this a current diagnosis for this admission?: Yes Plan: Status post laparoscopic cholecystectomy 08/02/2018 (5) Hyperbilirubinemia Is this a current diagnosis for this admission?: Yes Plan: Continue to monitor (6) Transaminitis Is this a current diagnosis for this admission?: Yes Plan: Also continue to monitor
[2018-08-03] MEDS ORDERED: GLUCAGON,HUMAN RECOMB 1 MG INJ ONE (16:27)
[2018-08-03] MEDS ORDERED: FENTANYL CITRATE INJ/PF 100 MCG/2 ML AMPUL ONE (17:44)
[2018-08-03] MEDS ORDERED: PROPOFOL INJ 200 MG/20 ML VIAL IV ONE (17:45)
[2018-08-03] MEDS ORDERED: MIDAZOLAM 2 MG/2 ML INJ ONE (17:45)
[2018-08-03] MEDS ORDERED: DIPHENHYDRAMINE HCL 50 MG/ML VIAL IV PRN (18:17)
[2018-08-03] MEDS ORDERED: FENTANYL CITRATE INJ/PF 100 MCG/2 ML AMPUL IV PRN ×3 (18:17)
[2018-08-03] MEDS ORDERED: PROMETHAZINE HCL INJ 25 MG/1 ML VIAL IV PRN ×2 (18:17)
[2018-08-03] MEDS ORDERED: MEPERIDINE HCL/PF INJ 25 MG/1 ML DISP.SYRIN IV PRN (18:17)
[2018-08-04] MEDS: PIPERACILLIN SODIUM/TAZOBACTAM 3.375 GM in NORMAL SALINE 100 ML IV SCH ×2 (03:00→08:39)
[2018-08-04] MEDS: NORMAL SALINE 1000 ML 1,000 ML IV PRN (03:05)
[2018-08-04 06:37] LABS: ABSOLUTE BASOPHILS # (AUTO) 0.1 10^3/uL (0.0-0.2); ABSOLUTE LYMPHOCYTES (AUTO) 1.6 10^3/uL (0.5-4.7); ABSOLUTE MONOCYTES (AUTO) 0.4 10^3/uL (0.1-1.4); ABSOLUTE NEUT (AUTO) 5.4 10^3/uL (1.7-8.2); BASOPHILS % (AUTO) 0.9 % (0-2); EOSINOPHILS % (AUTO) 0.6 % (0-6); HEMOGLOBIN 12.2 g/dL (12.0-15.5); LYMPHOCYTES % (AUTO) 21.1 % (13-45); MEAN CORPUSCULAR HEMOGLOBIN 24.5 pg (27.0-33.4); MEAN CORPUSCULAR HGB CONC 33.9 g/dL (32.0-36.0); MEAN CORPUSCULAR VOLUME 72 fl (80-97); MONOCYTES % (AUTO) 5.9 % (3-13); PLATELET COUNT 222 10^3/uL (150-450); RED BLOOD COUNT 4.98 10^6/uL (3.72-5.28); RED CELL DISTRIBUTION WIDTH 15.4 % (11.5-14.0); SEGMENTED NEUTROPHILS % (AUTO) 71.5 % (42-78); TOTAL CELLS COUNTED % (AUTO) 100 %
[2018-08-04 06:39] LABS: WHITE BLOOD COUNT 7.6 10^3/uL (4.0-10.5)
[2018-08-04 06:46] LABS: ALANINE AMINOTRANSFERASE 392 U/L (9-52); ALBUMIN 3.7 g/dL (3.5-5.0); ALKALINE PHOSPHATASE 305 U/L (38-126); ANION GAP 14 (5-19); ASPARTATE AMINO TRANSFERASE 126 U/L (14-36); BILIRUBIN,DIRECT 1.2 mg/dL (0.0-0.4); BILIRUBIN,TOTAL 1.9 mg/dL (0.2-1.3); BLOOD UREA NITROGEN 6 mg/dL (7-20); CALCIUM 9.5 mg/dL (8.4-10.2); CARBON DIOXIDE 20 mmol/L (22-30); CHLORIDE 108 mmol/L (98-107); GLUCOSE 84 mg/dL (75-110); POTASSIUM 4.2 mmol/L (3.6-5.0); SODIUM 142.2 mmol/L (137-145); TOTAL PROTEIN 6.9 g/dL (6.3-8.2)
[2018-08-04 08:02] VITALS: BP 119/63
--- NOTE | 2018-08-04 08:33 | RADIOLOGY REPORT (SQ) ---
EXAM DESCRIPTION: ENDO CATH/BILIARY DUCT; NO CHG FLUORO COMPLETED DATE/TIME: 08/03/2018 8:28 pm REASON FOR STUDY: ERCP COMPARISON: Intraoperative cholangiogram 08/02/2018 Abdominal ultrasound 07/31/2018, CT abdomen pelvis 07/31/2018 FLUOROSCOPY TIME: 2.8 minutes 6 digital radiographic images saved to PACS. TECHNIQUE: Intra-operative images acquired during surgical procedure to evaluate progress. NUMBER OF IMAGES: 6 digital radiographic images saved to pac's LIMITATIONS: None. FINDINGS: Multiple images from ERCP demonstrate injection of contrast into the common bile duct and common hepatic ducts, sweeping of the common bile duct with a balloon catheter. Final film demonstra whitney no filling defects in the common bile duct. No leakage of contrast from the cystic duct stump. IMPRESSION: INTRA PROCEDURAL IMAGING ABOVE . COMMENT: Quality ID [id number]: Final reports for procedures using fluoroscopy that document radiation exp osure indices, or exposure time and number of fluorographic images (if radiation exposure indices are not available) Please consult full operative report of the attending physician for description of the procedure. TECHNICAL DOCUMENTATION: JOB ID: [id number] [employer]- All Rights Reserved Reading location - IP/workstation name: [email or web address]
--- NOTE | 2018-08-04 08:33 | RADIOLOGY REPORT (SQ) ---
EXAM DESCRIPTION: ENDO CATH/BILIARY DUCT; NO CHG FLUORO COMPLETED DATE/TIME: 08/03/2018 8:28 pm REASON FOR STUDY: ERCP COMPARISON: Intraoperative cholangiogram 08/02/2018 Abdominal ultrasound 07/31/2018, CT abdomen pelvis 07/31/2018 FLUOROSCOPY TIME: 2.8 minutes 6 digital radiographic images saved to PACS. TECHNIQUE: Intra-operative images acquired during surgical procedure to evaluate progress. NUMBER OF IMAGES: 6 digital radiographic images saved to pac's LIMITATIONS: None. FINDINGS: Multiple images from ERCP demonstrate injection of contrast into the common bile duct and common hepatic ducts, sweeping of the common bile duct with a balloon catheter. Final film demonstra whitney no filling defects in the common bile duct. No leakage of contrast from the cystic duct stump. IMPRESSION: INTRA PROCEDURAL IMAGING ABOVE . COMMENT: Quality ID [id number]: Final reports for procedures using fluoroscopy that document radiation exp osure indices, or exposure time and number of fluorographic images (if radiation exposure indices are not available) Please consult full operative report of the attending physician for description of the procedure. TECHNICAL DOCUMENTATION: JOB ID: [id number] [employer]- All Rights Reserved Reading location - IP/workstation name: [email or web address]
--- NOTE | 2018-08-04 10:02 | OPERATIVE REPORT E ---
Operative Report NAME: SERGIO KUHN : 1995 AGE: 23Y DATE OF SURGERY: 08/03/2018 ROOM: 226 PREOPERATIVE DIAGNOSIS: Jaundice. POSTOPERATIVE DIAGNOSIS: Multiple common bile duct stones. OPERATION: ERCP with sphincterotomy and balloon stone extraction. SURGEON: CIELO VALENTINO M.D. MEDICATIONS: As per Anesthesia. TISSUE REMOVED: None. PROCEDURE: After informed consent was obtained from the patient, she was placed under general anesthesia. The ERCP endoscope was then inserted into the esophagus and into the duodenum. The common ampulla was identified and this was cannulated using the triple-lumen sphincterotomy catheter. A cholangiogram was obtained and this showed multiple small filling defects. A good-sized sphincterotomy was then performed using the Endocut mode. The catheter was removed and replaced with a 9 to 12 mm balloon catheter. This was inflated in the proximal bile duct and pulled down the duct. Three small multifaceted yellow stones were removed. Balloon occlusion cholangiogram was normal. The pancreatic duct was not cannulated. The patient tolerated the procedure well. PLAN: Follow up LFTs. DICTATING PHYSICIAN: CIELO VALENTINO M.D. [id number] PHY#: [id number] ID: [id number] JOB#: [id number] ACCT: [id number] cc:CIELO VALENTINO M.D. >
--- NOTE | 2018-08-04 10:31 | PDOC PROGRESS REPORT ---
Subjective Progress Note for:: 08/04/18 Subjective:: Feels well. No complaints. Tolerating diet well. Reason For Visit: TRANSAMINITIS,HYPERBILIRUBINEMIA,CHOLELITHIASIS Physical Exam Vital Signs: Temp Pulse Resp BP Pulse Ox 98.9 F 82 16 119/63 96 08/04/18 07:52 08/04/18 07:52 08/04/18 07:52 08/04/18 07:52 08/04/18 07:52 Intake & Output 08/03/18 08/04/18 08/05/18 06:59 06:59 06:59 Intake Total 5100 2380 Output Total 720 0 Balance 4380 2380 Weight 94 kg 94.1 kg General appearance: PRESENT: no acute distress, cooperative Respiratory exam: PRESENT: clear to auscultation jaxon Cardiovascular exam: PRESENT: RRR GI/Abdominal exam: PRESENT: other - Soft, nondistended, nontender to palpation. Extremities exam: PRESENT: other - No swelling and no tenderness Results Laboratory Results: 08/04/18 06:26 08/04/18 06:26 08/04/18 08/04/18 06:26 06:26 WBC 7.6 RBC 4.98 Hgb 12.2 Hct 36.0 MCV 72 L MCH 24.5 L MCHC 33.9 RDW 15.4 H Plt Count 222 Seg Neutrophils % 71.5 Lymphocytes % 21.1 Monocytes % 5.9 Eosinophils % 0.6 Basophils % 0.9 Absolute Neutrophils 5.4 Absolute Lymphocytes 1.6 Absolute Monocytes 0.4 Absolute Eosinophils 0.0 Absolute Basophils 0.1 Sodium 142.2 Potassium 4.2 Chloride 108 H Carbon Dioxide 20 L Anion Gap 14 BUN 6 L Creatinine 0.59 Est GFR ( Amer) > 60 Est GFR (Non-Af Amer) > 60 Glucose 84 Calcium 9.5 Total Bilirubin 1.9 H AST 126 H ALT 392 H Alkaline Phosphatase 305 H Total Protein 6.9 Albumin 3.7 Impressions: Limited or Localized CT 07/31/18 09:39 IMPRESSION: 1. Minimal nonobstructing left nephrolithiasis. 2. Otherwise unremarkable study. Abdomen Ultrasound 07/31/18 11:08 IMPRESSION: 1. Cholelithiasis. Cholangiogram 08/02/18 00:00 IMPRESSION: Stones in the distal common bile duct. No passage of contrast into the duodenum. Catheter Placement 08/03/18 00:00 IMPRESSION: INTRA PROCEDURAL IMAGING ABOVE . Fluoroscopy 08/03/18 00:00 IMPRESSION: INTRA PROCEDURAL IMAGING ABOVE . Assessment & Plan - Diagnosis (1) Choledocholithiasis Is this a current diagnosis for this admission?: Yes Plan: Status post ERCP. Liver function studies have improved. Patient looks good. Will discharge patient home.
--- NOTE | 2018-08-04 10:59 | DISCHARGE SUMMARY E ---
Discharge Summary NAME: SERGIO KUHN : 1995 AGE: 23Y ADMITTED: 07/31/2018 DISCHARGED: 08/04/2018 DISCHARGE DIAGNOSIS: ACUTE ON CHRONIC CHOLECYSTITIS WITH CHOLEDOCHOLITHIASIS. PROCEDURE PERFORMED DURING HOSPITALIZATION: Laparoscopic cholecystectomy with intraoperative cholangiogram performed by Dr. Crawford on 08/02/2018; ERCP with sphincterotomy performed by Dr. Arthur Rojas on 08/03/2018. HOSPITAL COURSE: Patient was initially managed with antibiotics. She subsequently underwent cholecystectomy with intraoperative cholangiogram which was noteworthy for a common bile duct stone. She underwent the ERCP with sphincterotomy and stone extraction. Her liver function studies had gone as high as a direct bilirubin of 3.5 and a total bilirubin of 4.4 with AST of 269 and ALT of 408 with an alkaline phosphatase of 258. At the time of discharge, her total bilirubin had come down to 1.9 with a direct bilirubin of 1.2. AST 126, ALT 392, and alkaline phosphatase 305. Patient did well postoperatively. She was tolerating a diet well with minimal abdominal discomfort. Patient has now been discharged to home in good condition. She will follow up in a couple of weeks with [facility]. She is to follow-up with Dr. Rojas in couple weeks she is encouraged to stay active at home. She may shower. She is to follow a low-fat diet. DISCHARGE MEDICATIONS: Percocet 1 p.o. every 4 hours p.r.n. pain. DICTATING PHYSICIAN: CARLENE FUNES M.D. [id number] PHY#: [id number] ID: [id number] JOB#: [id number] ACCT: [id number] cc:Rafiq BARAJAS M.D. > MTDOzzie
--- NOTE | 2018-08-04 11:01 | PDOC DISCHARGE SUMMARY ---
General - Admit/Disc Date/PCP Admission Date/Primary Care Provider: 07/31/18 13:38 Discharge Date: 08/04/18 - Discharge Diagnosis (1) Acute and chronic cholecystitis Is this a current diagnosis for this admission?: Yes (2) Choledocholithiasis Is this a current diagnosis for this admission?: Yes (3) Abdominal pain Is this a current diagnosis for this admission?: Yes (4) Cholelithiasis Is this a current diagnosis for this admission?: Yes (5) Hyperbilirubinemia Is this a current diagnosis for this admission?: Yes (6) Transaminitis Is this a current diagnosis for this admission?: Yes - Additional Information Resuscitation Status: Full Code Discharge Diet: As Tolerated - Low-fat diet Discharge Activity: No Lifting Over 10 Pounds, Slowly Increase Activity, No tub bath Prescriptions: Acetaminophen [Tylenol 325 mg Tablet] 650 mg PO Q4HP PRN #30 tablet PRN Reason: Home Medications: Acetaminophen [Tylenol 325 mg Tablet] 650 mg PO Q4HP PRN #30 tablet 08/04/18 History of Present Illness History of Present Illness: SERGIO KUHN is a 23 year old black female patient with no significant past medical history presented with chief complaint of nausea vomiting and abdominal pain of 3 days duration. Patient describes the pain as colicky and localized to her epigastrium and right upper quadrant area. Of note patient had uncomplicated vaginal delivery in March of this year. He her CMP revealed elevated liver enzymes with AST 253 ALT 616, alkaline phosphatase 270, total bilirubin 3.8 and direct bilirubin is 3.2. Patient denies any fever, chills, cough, palpitation, chest pain, diaphoresis or urinary complaints. She does not have any headache dizziness or blurring of vision. Dr. Zee general surgeon has been consulted. She denied any intravenous drug abuse or any other substance abuse. No family history of biliary disease. Hospital Course Hospital Course: Patient underwent laparoscopic cholecystectomy on August 02, 2018. Intraoperative cholangiogram was positive for stone in the common bile duct and distal position. Patient had ERCP on August 03, 2018 that was negative for choledocholithiasis. Patient tolerated diet postop very well. Her liver enzymes improved and she was cleared for discharge by the surgeon. Physical Exam Vital Signs: Temp Pulse Resp BP Pulse Ox 98.9 F 82 16 119/63 96 08/04/18 07:52 08/04/18 07:52 08/04/18 07:52 08/04/18 07:52 08/04/18 07:52 Intake & Output 08/03/18 08/04/18 08/05/18 06:59 06:59 06:59 Intake Total 5100 2380 100 Output Total 720 0 Balance 4380 2380 100 Weight 207 lb 3.752 oz 207 lb 7.28 oz General appearance: PRESENT: no acute distress, cooperative Head exam: PRESENT: atraumatic, normocephalic Respiratory exam: PRESENT: clear to auscultation jaxon. ABSENT: accessory muscle use Cardiovascular exam: PRESENT: RRR Pulses: PRESENT: normal radial pulses GI/Abdominal exam: PRESENT: normal bowel sounds, soft. ABSENT: ascites, tenderness Rectal exam: PRESENT: deferred Neurological exam: PRESENT: alert, altered, awake, oriented to person, oriented to place, oriented to time, oriented to situation Results Laboratory Results: 08/04/18 06:26 08/04/18 06:26 08/04/18 08/04/18 06:26 06:26 WBC 7.6 RBC 4.98 Hgb 12.2 Hct 36.0 MCV 72 L MCH 24.5 L MCHC 33.9 RDW 15.4 H Plt Count 222 Seg Neutrophils % 71.5 Lymphocytes % 21.1 Monocytes % 5.9 Eosinophils % 0.6 Basophils % 0.9 Absolute Neutrophils 5.4 Absolute Lymphocytes 1.6 Absolute Monocytes 0.4 Absolute Eosinophils 0.0 Absolute Basophils 0.1 Sodium 142.2 Potassium 4.2 Chloride 108 H Carbon Dioxide 20 L Anion Gap 14 BUN 6 L Creatinine 0.59 Est GFR ( Amer) > 60 Est GFR (Non-Af Amer) > 60 Glucose 84 Calcium 9.5 Total Bilirubin 1.9 H AST 126 H ALT 392 H Alkaline Phosphatase 305 H Total Protein 6.9 Albumin 3.7 Impressions: Limited or Localized CT 07/31/18 09:39 IMPRESSION: 1. Minimal nonobstructing left nephrolithiasis. 2. Otherwise unremarkable study. Abdomen Ultrasound 07/31/18 11:08 IMPRESSION: 1. Cholelithiasis. Cholangiogram 08/02/18 00:00 IMPRESSION: Stones in the distal common bile duct. No passage of contrast into the duodenum. Catheter Placement 08/03/18 00:00 IMPRESSION: INTRA PROCEDURAL IMAGING ABOVE . Fluoroscopy 08/03/18 00:00 IMPRESSION: INTRA PROCEDURAL IMAGING ABOVE . Qualifiers - * PATIENT BEING DISCHARGED WITH ANY OF THE FOLLOWING DIAGNOSIS: No
== END 2018-08-04 11:40 | disposition home or self-care (01) | DRG 419 ==
LOC: ER 09:27 → EH 13:38 → 2S 16:34
PROVIDERS: ADMIT Internal Medicine; ATTEND Internal Medicine
PROC: BF031ZZ Plain Radiography of Gallbladder and Bile Ducts using Low Osmolar Contrast (ICD-10-PCS; 2018-08-02)
PROC: 0FT44ZZ Resection of Gallbladder, Percutaneous Endoscopic Approach (ICD-10-PCS; principal; 2018-08-02 08:30)
PROC: 0FC98ZZ Extirpation of Matter from Common Bile Duct, Via Natural or Artificial Opening Endoscopic (ICD-10-PCS; 2018-08-03)
PROC: 0F798ZZ Dilation of Common Bile Duct, Via Natural or Artificial Opening Endoscopic (ICD-10-PCS; 2018-08-03)
DX: K80.66 Calculus of gallbladder and bile duct with acute and chronic cholecystitis without obstruction (principal)
CPT/HCPCS: 36415; 43262; 43264; 732; 74300; 74328; 76380; 76705; 790; 80048; 80053; 80061; 80074; 80076; 81001; 81025; 83690; 85025; 87070; 87075; 87077; 87186; 87205; 88304; 93976; 96361; 96374; 99285; J0330; J0690; J1100; J1610; J1885; J2250; J2270; J2405; J2543; J2704; J2765; J3010; J3490; J7030; Q9967; S0028

== ENCOUNTER 2019-07-08 09:53 | Emergency (ER) | payer BC, MEDICAID ==
[2019-07-08] MEDS ORDERED: NORMAL SALINE 1000 ML 1,000 ML IV ONE (11:01)
--- NOTE | 2019-07-08 11:16 | ER Document Report ---
ED General - General Chief Complaint: Anxiety Stated Complaint: ANXIETY Time Seen by Provider: 07/08/19 10:50 Primary Care Provider: NARA LEE MD [Primary Care Provider] - Follow up as needed Information source: Patient Notes: HPI: 24-year-old female G3, P1011 at 27 weeks by ultrasound who presents today feeling an episode of feeling "flushed" and lightheaded while working at her job . 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 Patient states she did skip breakfast. She felt "tingly" to bilateral upper and lower extremities. Patient states she has had this multiple times in the past. She has had a little nausea and is recently run out of her Zofran. Patient denies any headache, neck pain, chest pain, abdominal pain, vaginal bleeding, or dysuria. No fevers or diarrhea. ROS: See HPI All other review of systems reviewed and otherwise negative Reviewed vital signs and nursing note as charted by RN. PHYSICAL EXAM: CONSTITUTIONAL: Alert and oriented and responds appropriately to questions. Well-appearing; well-nourished HEAD: Normocephalic; atraumatic EYES: PERRL; Conjunctivae clear, sclerae is not pale ENT: Normal nose; no rhinorrhea; moist mucous membranes; pharynx without lesions noted NECK: Supple without meningismus; non-tender; no cervical lymphadenopathy, no masses CARD: Regular rate and rhythm; no murmurs; symmetric distal pulses RESP: Normal chest excursion without splinting or tachypnea; breath sounds clear and equal bilaterally ABD/GI: Normal bowel sounds; gravid consistent with dates with no tenderness BACK: The back appears normal and is non-tender to palpation EXT: Normal ROM in all joints; non-tender to palpation; no edema SKIN: No acute lesions noted NEURO: CN 2-12 intact; 5/5 bilateral upper and lower extremity strength with sensation intact to light touch PSYCH: The patient's mood and manner are appropriate. Grooming and personal hygiene are appropriate. TRAVEL OUTSIDE OF THE [place] IN LAST 30 DAYS: No - Related Data Allergies/Adverse Reactions: No Known Allergies Allergy (Verified 04/14/18 07:46) Past Medical History - Social History Smoking Status: Never Smoker Family History: None, Reviewed & Not Pertinent Patient has suicidal ideation: No Patient has homicidal ideation: No Renal/ Medical History: Denies: Hx Peritoneal Dialysis Psychiatric Medical History: Denies: Hx Depression Past Surgical History: Reports: Hx Cholecystectomy Physical Exam - Vital signs Vitals: Temp Pulse Resp BP Pulse Ox 98.1 F 90 18 110/65 98 07/08/19 09:57 07/08/19 09:57 10 09:57 07/08/19 09:57 07/08/19 09:57 Course - Re-evaluation Re-evalutation: 07/08/19 11:15 Given the above history and physical we will obtain basic labs, EKG, urine analysis, provide fluids, and reassess. Patient is completely asymptomatic at this time. Patient did miss breakfast. Patient is . Patient did not fall and denies any chest pain or shortness of breath. No lower extremity edema on exam. Vital signs as recorded. 07/08/19 11:20 EKG shows heart of 87, normal sinus rhythm, normal axis, no ST elevation or depression. 07/08/19 12:16 Labs and urine analysis as recorded. Patient denies any pain. Urine culture has been sent. I will start the patient on a course of Macrobid with strict return precautions and follow-up with the ECHOCARDIOGRAPH TECH. - Vital Signs Vital signs: Temp Pulse Resp BP Pulse Ox 98.1 F 90 22 H 110/65 98 07/08/19 09:57 07/08/19 09:57 07/08/19 12:00 07/08/19 09:57 07/08/19 12:00 - Laboratory Result Diagrams: 07/08/19 10:10 07/08/19 10:10 Laboratory results interpreted by me: 07/08/19 07/08/19 07/08/19 10:10 10:10 11:03 Hgb 10.5 L Hct 33.1 L MCV 71 L MCH 22.6 L MCHC 31.9 L RDW 14.8 H Sodium 134.5 L Carbon Dioxide 21 L BUN 5 L Creatinine 0.49 L Urine Blood SMALL H Ur Leukocyte Esterase LARGE H Discharge - Discharge Clinical Impression: Lightheaded UTI (urinary tract infection) Qualifiers: Urinary tract infection type: site unspecified Hematuria presence: without hematuria Qualified Code(s): N39.0 - Urinary tract infection, site not specified and not yet delivered Qualifiers: Trimester: second trimester Qualified Code(s): Z34.92 - Encounter for spangler pervision of normal , unspecified, second trimester Condition: Good Disposition: HOME, SELF-CARE Prescriptions: Nitrofurantoin/Nitrofuran Mac [Macrobid 100 mg Capsule] 1 tab PO BID #20 capsule Ondansetron [Zofran Odt 4 mg Tablet] 1 tab PO Q6H #15 tab.gurdeepdis Referrals: NARA LEE MD [Primary Care Provider] - Follow up as needed
[2019-07-08 11:25] LABS: ABSOLUTE EOSINOPHILS # (AUTO) 0.1 10^3/uL (0.0-0.6); ABSOLUTE LYMPHOCYTES (AUTO) 1.2 10^3/uL (0.5-4.7); ABSOLUTE MONOCYTES (AUTO) 0.4 10^3/uL (0.1-1.4); ABSOLUTE NEUT (AUTO) 3.1 10^3/uL (1.7-8.2); BASOPHILS % (AUTO) 0.4 % (0-2); EOSINOPHILS % (AUTO) 2.4 % (0-6); HEMATOCRIT 33.1 % (36.0-47.0); HEMOGLOBIN 10.5 g/dL (12.0-15.5); LYMPHOCYTES % (AUTO) 25.5 % (13-45); MEAN CORPUSCULAR HEMOGLOBIN 22.6 pg (27.0-33.4); MEAN CORPUSCULAR HGB CONC 31.9 g/dL (32.0-36.0); MEAN CORPUSCULAR VOLUME 71 fl (80-97); MONOCYTES % (AUTO) 8.4 % (3-13); PLATELET COUNT 211 10^3/uL (150-450); RED BLOOD COUNT 4.67 10^6/uL (3.72-5.28); RED CELL DISTRIBUTION WIDTH 14.8 % (11.5-14.0); SEGMENTED NEUTROPHILS % (AUTO) 63.3 % (42-78); TOTAL CELLS COUNTED % (AUTO) 100 %; WHITE BLOOD COUNT 4.9 10^3/uL (4.0-10.5)
[2019-07-08 11:31] LABS: ANION GAP 9 (5-19); BLOOD UREA NITROGEN 5 mg/dL (7-20); CALCIUM 8.9 mg/dL (8.4-10.2); CARBON DIOXIDE 21 mmol/L (22-30); CHLORIDE 105 mmol/L (98-107); GLUCOSE 78 mg/dL (75-110); POTASSIUM 3.8 mmol/L (3.6-5.0)
[2019-07-08 11:39] LABS: AMORPHOUS SEDIMENT,URINE TRACE /HPF; APPEARANCE,URINE CLOUDY; BILIRUBIN,URINE NEGATIVE (NEGATIVE); COLOR,URINE YELLOW; GLUCOSE, URINE NEGATIVE (NEGATIVE); KETONES,URINE NEGATIVE (NEGATIVE); LEUKOCYTE ESTERASE,URINE LARGE (NEGATIVE); NITRITE,URINE NEGATIVE (NEGATIVE); PROTEIN,URINE NEGATIVE (NEGATIVE); URINE SPECIFIC GRAVITY 1.005; UROBILINOGEN,URINE NEGATIVE mg/dL (<2.0)
[2019-07-08] MEDS ORDERED: NITROFURANTOIN MONOHYD/M-CRYST 100 MG CAPSULE PO ONE (12:16)
[2019-07-08 12:35] VITALS: BP 115/70
--- NOTE | 2019-07-09 00:23 | EKG REPORT ---
SEVERITY:- NORMAL ECG - SINUS RHYTHM : Confirmed by: Tori Chavis 09-Jul-2019 00:22:22
== END 2019-07-08 12:51 | disposition home or self-care (01) ==
LOC: ER 09:53
DX: O23.42 Unspecified infection of urinary tract in pregnancy, second trimester (principal); O99.352 Diseases of the nervous system complicating pregnancy, second trimester; R42 Dizziness and giddiness; F41.9 Anxiety disorder, unspecified; R20.0 Anesthesia of skin; Z3A.27 27 weeks gestation of pregnancy
CPT/HCPCS: 93005; 36415; 87086; 82962; 85025; 80048; 81001; 93010; J7030; J8499; 96360; 99284

== ENCOUNTER 2019-10-02 07:18 | Inpatient (IN) | payer BC, MEDICAID ==
[2019-10-02] MEDS ORDERED: OXYTOCIN/NORMAL SALINE 20 UNIT/1,000 ML RTUINJ ONE (07:47)
[2019-10-02] MEDS ORDERED: MISOPROSTOL 0.2 MG TABLET ONE (07:47)
[2019-10-02] MEDS ORDERED: LIDOCAINE 1% INJ-PF (10 MG/ML) 30 ML SDV ONE (07:47)
[2019-10-02] MEDS ORDERED: OXYTOCIN 10 UNIT/ML VIAL ONE (07:47)
[2019-10-02] MEDS ORDERED: RINGERS SOLUTION,LACTATED 1,000 ML IV PRN (07:58)
[2019-10-02] MEDS ORDERED: RINGERS SOLUTION,LACTATED 1,000 ML IV ONE (07:58)
--- NOTE | 2019-10-02 08:13 | Admission Physical ---
Datetime Report Generated by CPN: 10/02/2019 08:13 CURRENT ADMISSION Chief Complaint: Uterine Contractions Admit Impression : Term, Intrauterine ; Active Labor Admit Plan: Admit to Unit; Initiate Labor Protocol Admit Plan- Other: pt may get an epidural if desires ALLERGIES Medication Allergies: No Medication Allergies: No Known Allergies (10/02/2019) Latex: No Latex Allergies Food Allergies: None Environmental Allergies: None OBSTETRICAL HISTORY EDC: 10/01/2019 00:00 : 2 Para: 1 Term: 1 IAB: 1 Ectopic: 0 Livin Cesareans: 0 Multiple Births: 0 Gestational Diabetes: No Rh Sensitization: No Incompetent Cervix: No KUNAL: No Infertility: No ART Treatment: No Uterine Anomaly: No IUGR: No Hx Previous C/S: No Macrosomia: No Hx Loss/Stillborn: No PIH: No Hx : No Placenta Previa/Abruption: No Depression/PP Depression: No PTL/PROM: No Post Hemorrhage: No Current Procedures: Ultrasound Obstetrical History Comments: G1; 2015, IAB G2; 2018, 41.1, 5lbs 11 oz, male, vaginal G3: current SEE RECORDS Alcohol: Yes Marijuana : No Cocaine: No Other Illicit Drugs: No Cigarettes: Never Smoker. [id number] MEDICAL HISTORY Diabetes: No Blood Transfusion: No Pulmonary Disease (Asthma, TB): No Breast Disease: No Hypertension: No [employer] Surgery: No Heart Disease: No Hosp/Surgery: Yes Autoimmune Disorder: No Anesthetic Complications: No Kidney Disease: No Abnormal Pap Smear: No Neuro/Epilepsy: No Psychiatric Disorders: No Other Medical Diseases: No Hepatitis/Liver Disease: No Significant Family History: No Varicosities/Phlebitis: No Trauma/Violence : No Thyroid Dysfunction: No Medical History Comments: cholecystectomy 2018, Child INFECTIOUS HISTORY Gonorrhea: No Genital Herpes: No Chlamydia: No Tuberculosis: No Syphilis: No Hepatitis: No HIV/AIDS Exposure: No Rash or Viral Illness: No HPV: No PHYSICAL EXAM General: Normal HEENT: Normal Neurologic: Normal Thyroid: Normal Heart: Normal Lungs: Normal Breast: Normal Back: Normal Abdomen: Normal Genitourinary Exam: Normal Extremities: Normal DTRs: Normal Pelvic Type: Adequate Vital Signs: Reviewed MEMBRANES Membranes: Intact FETUS A EGA: 40.1 Monitoring: External US FHR- Baseline: 140 Variability: Moderate 6-25bpm Accelerations: 15X15 Decelerations: Variable FHR Comments: mild variable, non-reoccuring Admit Comment: at 40.1 wks, pt presents to labor and delivery this morning c/o contractions, denies bleeding or loss of fluid. VE per RN /-2, GBS negative. Will plan to admit. pt may get an epidural if desires, position changes encouraged, Anticipate . Attending MD is Dr Collazo. PLANS FOR LABOR AND DELIVERY Labor and Delivery: None Pain Management: Epidural Feeding Preference: Formula Benefit of Breast Feed Discussed: Yes Circumcision: N/A INFORMED CONSENT Assignment: Agatha Collazo MD Signature: with User ID: [email or web address] : with User ID: [email or web address]
[2019-10-02 09:06] LABS: ABSOLUTE LYMPHOCYTES (AUTO) 1.2 10^3/uL (0.5-4.7); ABSOLUTE MONOCYTES (AUTO) 0.4 10^3/uL (0.1-1.4); ABSOLUTE NEUT (AUTO) 3.2 10^3/uL (1.7-8.2); BASOPHILS % (AUTO) 0.3 % (0-2); EOSINOPHILS % (AUTO) 0.6 % (0-6); HEMATOCRIT 34.4 % (36.0-47.0); HEMOGLOBIN 11.1 g/dL (12.0-15.5); MEAN CORPUSCULAR HEMOGLOBIN 21.3 pg (27.0-33.4); MEAN CORPUSCULAR HGB CONC 32.2 g/dL (32.0-36.0); MEAN CORPUSCULAR VOLUME 66 fl (80-97); MONOCYTES % (AUTO) 7.3 % (3-13); PLATELET COUNT 163 10^3/uL (150-450); RED BLOOD COUNT 5.19 10^6/uL (3.72-5.28); RED CELL DISTRIBUTION WIDTH 16.9 % (11.5-14.0); SEGMENTED NEUTROPHILS % (AUTO) 66.8 % (42-78); TOTAL CELLS COUNTED % (AUTO) 100 %; WHITE BLOOD COUNT 4.8 10^3/uL (4.0-10.5)
[2019-10-02] MEDS ORDERED: EPHEDRINE SULFATE INJ 50 MG/1 ML AMPULE ONE (09:33)
[2019-10-02] MEDS ORDERED: FENTANYL CITRATE INJ/PF 100 MCG/2 ML AMPUL ONE (09:33)
[2019-10-02] MEDS ORDERED: FENTANYL/BUPIVACAINE/NS/PF 300 MCG/150 ML RTUINJ EPI ONE (09:33)
[2019-10-02] MEDS ORDERED: BUPIVACAINE HCL 0.25 % INJ/PF (2.5 MG/1 ML) 30 ML VIAL ONE (09:33)
[2019-10-02 09:38] LABS: URINE AMPHETAMINES SCREEN NEGATIVE; URINE BARBITURATES SCREEN NEGATIVE; URINE BENZODIAZEPINES SCREEN NEGATIVE; URINE COCAINE SCREEN NEGATIVE; URINE MARIJUANA (THC) SCREEN NEGATIVE; URINE METHADONE SCREEN NEGATIVE; URINE PHENCYCLIDINE SCREEN NEGATIVE
[2019-10-02] MEDS ORDERED: OXYTOCIN/NORMAL SALINE 20 UNIT/1,000 ML RTUINJ IV PRN ×2 (10:40→12:17)
--- NOTE | 2019-10-02 11:14 | Warning Signs in Babies ---
VOD Warning Signs Datetime Report Generated by [facility]: 10/02/2019 11:13 VOD#608 -Warning Signs in Babies: Viewed with Parent(s)/Family (10/02/2019 11:12:Roe Ayers RN)
[2019-10-02] MEDS ORDERED: ZOLPIDEM TARTRATE 5 MG TABLET PO PRN (12:17)
[2019-10-02] MEDS ORDERED: DIPH/PERTUSS(ACELL)/TETANUS VAC/PF 0.5 ML SYR (>=10YO) IM PRN (12:17)
[2019-10-02] MEDS ORDERED: MEASLES,MUMPS&RUBELLA VACC/PF 0.5 ML VIAL SUBCUT PRN (12:17)
[2019-10-02] MEDS ORDERED: BENZOCAINE/MENTHOL AEROSOL SPRAY 56 ML TOP PRN (12:17)
[2019-10-02] MEDS ORDERED: DIBUCAINE 1% OINTMENT 28 GM TP PRN (12:17)
[2019-10-02] MEDS ORDERED: IBUPROFEN 800 MG TABLET ONE (12:27)
[2019-10-02] MEDS: IBUPROFEN 800 MG TABLET PO SCH ×2 (14:09→22:06)
--- NOTE | 2019-10-02 14:40 | Delivery Summary ---
Del Sum A-C Datetime Report Generated by CPN: 10/02/2019 14:40 DELIVERY PERSONNEL DELIVERY PERSONNEL: [id number] Delivery Doctor:: Dianna Briones CNM Labor and Delivery Nurse:: Roe Ayers RN Community Theater Actor/PLASTIC SURGERY SPECIALIST: Ankita Lorenzo, STRUCTURAL IRON ERECTOR Additional Personnel: : Katie Jasso RN MATERNAL INFORMATION Delivery Anesthesia: Epidural Medications After Delivery: Pitocin Bolus-Please Comment Meds After Delivery Comment: Pitocin 20 units in NS Delivery QBL: 250 Maternal Complications: None Provider Comments: of VFI, delivered OA w/ nuchal cord and compound presentation of one hand, baby rotated to JUAN PABLO and delivered through the loose NC. Baby placed on pts abdoman, vigorous and crying. Cord clamped and cut after one minute. Cord blood collected. Apgars 8,9. Placenta S/C/I, ff w/decreased lochia, IV Pitocin infusing. Repair of 1st degree laceration completed. QBL 250 ml. Mother and baby left in stable condition, Skin to skin. Pt plans to bottle feed, Attending MD is Dr Collazo LABOR SUMMARY EDC: 10/01/2019 00:00 No. Babies in Womb: 1 Attempted: No Labor Anesthesia: Epidural LABOR INFORMATION Reason for Induction: Not Applicable Onset of Labor: 10/02/2019 08:00 Complete Dilatation: 10/02/2019 11:36 Oxytocin: Augmentation Group B Beta Strep: negative Antibiotics # of Doses: 0 Steroids Given: None Reason Steroids Not Administered: Not Applicable MEMBRANES Membranes Rupture Method: Artificial Rupture of Membranes: 10/02/2019 10:33 Length of Rupture (hr): 1.27 Amniotic Fluid Color: Clear Amniotic Fluid Amount: Small Amniotic Fluid Odor: Normal STAGES OF LABOR Stage 1 hr: 3 Stage 1 min: 36 Stage 2 hr: 0 Stage 2 min: 13 Stage 3 hr: 0 Stage 3 min: 4 Total Time in Labor hr: 3 Total Time in Labor min: 53 VAGINAL DELIVERY Episiotomy: None Laceration #1: Perineal Laceration Extension #1: First Degree Laceration Repair: Yes Laceration Repair Note: 1st degree laceration, figure of eight stitch for hemostasis, using 3.[address] needle Sponge Count Correct: N/A CSECTION DELIVERY Primary Indication: N/A Secondary Indication: N/A CSection Incidence: N/A Elective: N/A CSection Incision: N/A BABY A INFORMATION Infant Delivery Date/Time: 10/02/2019 11:49 Method of Delivery: Vaginal Born in Route : No : N/A Forceps: N/A Vacuum Extraction: N/A Shoulder Dystocia : No PRESENTATION/POSITION BABY A Presentation: Cephalic Cephalic Presentation: Vertex Vertex Position: Left Occipital Anterior Breech Presentation: N/A PLACENTA INFORMATION BABY A Placenta Delivery Time : 10/02/2019 11:53 Placenta Method of Delivery: Spontaneous Placenta Status: Delivered SCORES BABY A Heart Rate 1 min: >100 bpm Resp Effort 1 min: Good Cry Reflex Irritability 1 min: Cough or Sneeze or Pulls Away Muscle Tone 1 min: Active Motion Color 1 min: Blue/Pale Resuscitation Effort 1 min: Tactile Stimulation SCORE 1 MIN: 8 Heart Rate 5 min: >100 bpm Resp Effort 5 min: Good Cry Reflex Irritability 5 min: Cough or Sneeze or Pulls Away Muscle Tone 5 min: Active Motion Color 5 min: Body [place], Extremities Blue Resuscitation Effort 5 min: Tactile Stimulation SCORE 5 MIN: 9 INFANT INFORMATION BABY A Gestational Age at Delivery: 40.1 Gestational Status: Full Term- 39- 40.6 Weeks Infant Outcome : Liveborn Infant Condition : Stable Sex: Female IDENTIFICATION BABY A Infant Verification Date/Time: 10/02/2019 13:12 ID Band Number: [id number] Mother's Name Verified: Yes Infant RN Verifying Infant: TMartin,RN Additional Verifying Personnel: RHorace Cagle, RN WEIGHT/LENGTH BABY A Infant Birthweight (gm): 3171 Weight (lb): 7 Weight (oz): 0 Length (in): 20.25 Length (cm): 51.44 CORD INFORMATION BABY A No. Cord Vessels: 3 Nuchal Cord : Around Neck x1, Loose Cord Blood Taken: Yes-For Storage (Mom's Blood type +) Infant Suction: Mouth ASSESSMENT BABY A Infant Complications: None Physical Findings at Delivery: Molding of the Head Respirations: Appears Normal Skin to Skin: Yes Skin to Skin Time (min): 30 Transferred To: Remains with Mother SIGNATURES Assignment: Agatha Collazo MD Signature: with User ID: [email or web address] : with User ID: [email or web address]
[2019-10-02] MEDS: DOCUSATE SODIUM 100 MG CAPSULE PO SCH (18:28)
[2019-10-02] MEDS: ACETAMINOPHEN WITH CODEINE #3 TABLET PO PRN (18:34)
[2019-10-03] MEDS: IBUPROFEN 800 MG TABLET PO SCH ×3 (05:49→22:30)
[2019-10-03 06:57] LABS: HEMATOCRIT 33.5 % (36.0-47.0); HEMOGLOBIN 10.8 g/dL (12.0-15.5); MEAN CORPUSCULAR HEMOGLOBIN 21.5 pg (27.0-33.4); MEAN CORPUSCULAR HGB CONC 32.2 g/dL (32.0-36.0); MEAN CORPUSCULAR VOLUME 67 fl (80-97); PLATELET COUNT 176 10^3/uL (150-450); RED BLOOD COUNT 5.03 10^6/uL (3.72-5.28); RED CELL DISTRIBUTION WIDTH 17.1 % (11.5-14.0); WHITE BLOOD COUNT 7.8 10^3/uL (4.0-10.5)
[2019-10-03] MEDS: DOCUSATE SODIUM 100 MG CAPSULE PO SCH ×2 (09:26→19:20)
[2019-10-03] MEDS: PRENATAL VITAMIN W DHA CAPSULE PO SCH (09:26)
[2019-10-03] MEDS: SENNOSIDES/DOCUSATE 8.6-50 MG 1 EACH TABLET PO SCH (09:26)
[2019-10-03] MEDS: FERROUS SULFATE 325 MG TABLET PO SCH (09:26)
--- NOTE | 2019-10-03 09:57 | PDOC PROGRESS REPORT ---
Subjective-OB Progress Note for:: 10/03/19 Subjective: PPD #1, doing well, would like to go home later today if baby is discharge. Discussed discharge instruction. She reports light bleeding, reg diet and voiding without difficulty. No concerns. Physical Exam (OB) Vital Signs: Temp Pulse Resp BP Pulse Ox 98.1 F 68 16 96/62 L 99 10/03/19 07:42 10/03/19 07:42 10/03/19 07:42 10/03/19 07:42 10/03/19 07:42 Intake & Output 10/02/19 10/03/19 10/04/19 06:59 06:59 06:59 Intake Total 400 Balance 400 Weight 96.2 kg - PIH/Pre-Eclampsia Clonus: Negative Headache: Absent Epigastric Pain: No Visual Changes: No - Lochia Lochia Amount: Scant < 10 ml Lochia Color: Rubra/Red - Abdomen Description: Soft, Round Hernia Present: No Fundal Description: Firm, Midline Fundal Height: u/u - u/2 Objective-Diagnostic Laboratory: 10/03/19 06:27 10/02/19 10/03/19 08:23 06:27 WBC 7.8 RBC 5.03 Hgb 10.8 L Hct 33.5 L MCV 67 L MCH 21.5 L MCHC 32.2 RDW 17.1 H Plt Count 176 Blood Type B POSITIVE Antibody Screen NEGATIVE Assessment and Plan(PN) - Assessment and Plan (1) Normal course Is this a current diagnosis for this admission?: Yes (2) (normal spontaneous vaginal delivery) Is this a current diagnosis for this admission?: Yes (3) Obstetric vaginal laceration with first degree perineal laceration Is this a current diagnosis for this admission?: Yes - Time Spent with Patient Time with patient: Less than 15 minutes Medications reviewed and adjusted accordingly: Yes - Disposition Anticipated Discharge: Home Within: within 24 hours
[2019-10-03] MEDS: ACETAMINOPHEN WITH CODEINE #3 TABLET PO PRN (19:55)
[2019-10-04] MEDS: IBUPROFEN 800 MG TABLET PO SCH (05:16)
[2019-10-04] MEDS: SENNOSIDES/DOCUSATE 8.6-50 MG 1 EACH TABLET PO SCH (09:07)
[2019-10-04] MEDS: PRENATAL VITAMIN W DHA CAPSULE PO SCH (09:07)
[2019-10-04] MEDS: DOCUSATE SODIUM 100 MG CAPSULE PO SCH (09:07)
[2019-10-04] MEDS: FERROUS SULFATE 325 MG TABLET PO SCH (09:07)
--- NOTE | 2019-10-04 11:03 | PDOC DISCHARGE SUMMARY ---
Impression - Admit/DC Date/PCP Admission Date/Primary Care Provider: 10/02/19 07:55 ARNEL MEJIAS MD Discharge Date: 10/04/19 - Discharge Diagnosis (1) Anemia complicating , third trimester Is this a current diagnosis for this admission?: Yes (2) (normal spontaneous vaginal delivery) Is this a current diagnosis for this admission?: Yes (3) Normal course Is this a current diagnosis for this admission?: Yes (4) Obstetric vaginal laceration with first degree perineal laceration Is this a current diagnosis for this admission?: Yes - Assessment Summary: term vaginal delivery stable, ppd 2 ready for discharge - Additional Information Resuscitation Status: Full Code Discharge Diet: As Tolerated, Regular Discharge Activity: Activity As Tolerated, Balance Activity w/Rest, No Lifting Over 10 Pounds, Pelvic Rest, Slowly Increase Activity, No tub bath, Walk Frequently Referrals: ARNEL MEJIAS MD [Primary Care Provider] - Prescriptions: Ibuprofen [Motrin 800 mg Tablet] 800 mg PO Q8HP PRN #60 tablet PRN Reason: Docusate Sodium [Colace 100 mg Capsule] 100 mg PO BID #60 capsule Ferrous Sulfate [Feosol 325 mg Tablet] 325 mg PO BID #60 tablet Home Medications: Vit No.130/Iron/Folic [ Tablet] 1 each PO DAILY 10/02/19 Ibuprofen [Motrin 800 mg Tablet] 800 mg PO Q8HP PRN #60 tablet 10/03/19 Docusate Sodium [Colace 100 mg Capsule] 100 mg PO BID #60 capsule 10/04/19 Ferrous Sulfate [Feosol 325 mg Tablet] 325 mg PO BID #60 tablet 10/04/19 Results Laboratory Results: WBC 7.8 10^3/uL (4.0-10.5) 10/03/19 06:27 RBC 5.03 10^6/uL (3.72-5.28) 10/03/19 06:27 Hgb 10.8 g/dL (12.0-15.5) L 10/03/19 06:27 Hct 33.5 % (36.0-47.0) L 10/03/19 06:27 MCV 67 fl (80-97) L 10/03/19 06:27 MCH 21.5 pg (27.0-33.4) L 10/03/19 06:27 MCHC 32.2 g/dL (32.0-36.0) 10/03/19 06:27 RDW 17.1 % (11.5-14.0) H 10/03/19 06:27 Plt Count 176 10^3/uL (150-450) 10/03/19 06:27 Lymph % (Auto) 25.0 % (13-45) 10/02/19 08:23 [place] % (Auto) 7.3 % (3-13) 10/02/19 08:23 Eos % (Auto) 0.6 % (0-6) 10/02/19 08:23 Baso % (Auto) 0.3 % (0-2) 10/02/19 08:23 Absolute Neuts (auto) 3.2 10^3/uL (1.7-8.2) 10/02/19 08:23 Absolute Lymphs (auto) 1.2 10^3/uL (0.5-4.7) 10/02/19 08:23 Absolute Monos (auto) 0.4 10^3/uL (0.1-1.4) 10/02/19 08:23 Absolute Eos (auto) 0.0 10^3/uL (0.0-0.6) 10/02/19 08:23 Absolute Basos (auto) 0.0 10^3/uL (0.0-0.2) 10/02/19 08:23 Seg Neutrophils % 66.8 % (42-78) 10/02/19 08:23 Urine Opiates Screen NEGATIVE 10/02/19 08:44 Urine Methadone Screen NEGATIVE 10/02/19 08:44 Ur Barbiturates Screen NEGATIVE 10/02/19 08:44 Ur Phencyclidine Scrn NEGATIVE 10/02/19 08:44 Ur Amphetamines Screen NEGATIVE 10/02/19 08:44 U Benzodiazepines Scrn NEGATIVE 10/02/19 08:44 Urine Cocaine Screen NEGATIVE 10/02/19 08:44 U Marijuana (THC) Screen NEGATIVE 10/02/19 08:44 RPR NONREACTIVE (NONREACTIVE) 10/02/19 08:23 Blood Type B POSITIVE 10/02/19 08:23 Antibody Screen NEGATIVE 10/02/19 08:23
[2019-10-04 11:39] VITALS: BP 98/62
== END 2019-10-04 12:47 | disposition home or self-care (01) | DRG 807 ==
LOC: LC 07:18 → LR 07:55 → 2S 14:04
PROVIDERS: ADMIT Obstetrics & Gynecology; ATTEND Obstetrics & Gynecology
PROC: 10E0XZZ Delivery of Products of Conception, External Approach (ICD-10-PCS; principal; 2019-10-02)
PROC: 0HQ9XZZ Repair Perineum Skin, External Approach (ICD-10-PCS; 2019-10-02)
DX: O69.81X0 Labor and delivery complicated by cord around neck, without compression, not applicable or unspecified (principal); Z37.0 Single live birth; O32.6XX0 Maternal care for compound presentation, not applicable or unspecified; O70.0 First degree perineal laceration during delivery; Z3A.40 40 weeks gestation of pregnancy; O99.02 Anemia complicating childbirth; D64.9 Anemia, unspecified; Z90.49 Acquired absence of other specified parts of digestive tract
CPT/HCPCS: 36415; 80307; 85025; 85027; 86592; 86850; 86900; 86901; 94760; J2590; J3010; J3490

== ENCOUNTER 2019-10-30 19:12 | Emergency (ER) | payer BC, MEDICAID ==
[2019-10-30] MEDS ORDERED: ACETAMINOPHEN 325 MG TABLET PO ONE (20:00)
[2019-10-30] MEDS ORDERED: ONDANSETRON 4 MG TAB.RAPDIS PO ONE (20:00)
--- NOTE | 2019-10-30 20:02 | ER Document Report ---
ED Medical Screen (RME) - General Stated Complaint: BLOOD PRESSURE ISSUES Time Seen by Provider: 10/30/19 20:00 Primary Care Provider: ARNEL MEJIAS MD [Primary Care Provider] - Follow up as needed Notes: 24-year-old female presents for flulike symptoms that started yesterday. Patient states she has had associated fever, nausea/vomiting. Patient was sent from urgent care due to low BP. Patient is 94/56 right arm and 114/51 on the le ft arm. Patient is also tacky at 125. Patient is mildly febrile at 100.3. Abdomen soft nontender. Lungs clear to auscultation bilaterally. Patient is 4 weeks . I have greeted and performed a rapid initial assessment of this patient. A comprehensive ED assessment and evaluation of the patient, analysis of test results and completion of the medical decision making process with be conducted by additional ED providers. TRAVEL OUTSIDE OF THE [place] IN LAST 30 DAYS: No - Related Data Allergies/Adverse Reactions: No Known Allergies Allergy (Verified 10/02/19 07:32) Past Medical History Renal/ Medical History: Denies: Hx Peritoneal Dialysis Psychiatric Medical History: Denies: Hx Depression Past Surgical History: Reports: Hx Cholecystectomy Doctor's Discharge - Discharge Referrals: ARNEL MEJIAS MD [Primary Care Provider] - Follow up as needed
[2019-10-30 20:45] LABS: ABSOLUTE LYMPHOCYTES (AUTO) 1.1 10^3/uL (0.5-4.7); ABSOLUTE MONOCYTES (AUTO) 1.1 10^3/uL (0.1-1.4); ABSOLUTE NEUT (AUTO) 6.9 10^3/uL (1.7-8.2); BASOPHILS % (AUTO) 0.3 % (0-2); HEMATOCRIT 32.8 % (36.0-47.0); HEMOGLOBIN 10.8 g/dL (12.0-15.5); LYMPHOCYTES % (AUTO) 12.2 % (13-45); MEAN CORPUSCULAR HEMOGLOBIN 21.8 pg (27.0-33.4); MEAN CORPUSCULAR VOLUME 66 fl (80-97); MONOCYTES % (AUTO) 12.2 % (3-13); PLATELET COUNT 157 10^3/uL (150-450); RED BLOOD COUNT 4.97 10^6/uL (3.72-5.28); RED CELL DISTRIBUTION WIDTH 19.5 % (11.5-14.0); SEGMENTED NEUTROPHILS % (AUTO) 75.3 % (42-78); TOTAL CELLS COUNTED % (AUTO) 100 %; WHITE BLOOD COUNT 9.2 10^3/uL (4.0-10.5)
[2019-10-30 20:47] LABS: APPEARANCE,URINE TURBID; BILIRUBIN,URINE NEGATIVE (NEGATIVE); GLUCOSE, URINE NEGATIVE (NEGATIVE); KETONES,URINE 20 mg/dL (NEGATIVE); PROTEIN,URINE 100 mg/dL (NEGATIVE); URINE SPECIFIC GRAVITY 1.017
[2019-10-30 20:55] LABS: COLOR,URINE DARK YELLOW
[2019-10-30 21:07] LABS: A TYPE INFLUENZA AG NEGATIVE (NEGATIVE); ALBUMIN 3.5 g/dL (3.5-5.0); ALKALINE PHOSPHATASE 108 U/L (38-126); ANION GAP 14 (5-19); ASPARTATE AMINO TRANSFERASE 18 U/L (14-36); B INFLUENZA AG NEGATIVE (NEGATIVE); BILIRUBIN,DIRECT 0.4 mg/dL (0.0-0.4); BILIRUBIN,TOTAL 0.8 mg/dL (0.2-1.3); BLOOD UREA NITROGEN 17 mg/dL (7-20); CALCIUM 8.7 mg/dL (8.4-10.2); CARBON DIOXIDE 22 mmol/L (22-30); CHLORIDE 100 mmol/L (98-107); GLUCOSE 88 mg/dL (75-110); POTASSIUM 3.7 mmol/L (3.6-5.0); TOTAL PROTEIN 7.2 g/dL (6.3-8.2)
[2019-10-30] MEDS: NORMAL SALINE 1000 ML 1,000 ML IV PRN ×2 (23:24→23:25)
[2019-10-31 00:19] LABS: APPEARANCE,URINE CLOUDY; BILIRUBIN,URINE NEGATIVE (NEGATIVE); COLOR,URINE AMBER; GLUCOSE, URINE NEGATIVE (NEGATIVE); KETONES,URINE TRACE mg/dL (NEGATIVE); LEUKOCYTE ESTERASE,URINE LARGE (NEGATIVE); NITRITE,URINE NEGATIVE (NEGATIVE); PROTEIN,URINE 100 mg/dL (NEGATIVE); URINE SPECIFIC GRAVITY 1.021
--- NOTE | 2019-10-31 01:31 | ER Document Report ---
Entered by FEDERICO KANG SCRIBE 10/30/19 0743 Acting as scribe for:RACHEL GARZA MD ED General - General Chief Complaint: Low Blood Pressure Stated Complaint: BLOOD PRESSURE ISSUES Time Seen by Provider: 10/30/19 20:00 Primary Care Provider: ARNEL MEJIAS MD [Primary Care Provider] - Follow up as needed Information source: Patient Notes: 24-year-old female presents to the emergency department with flu-like symptoms. Patient reports "on and off" fever, vomiting, chills, "sweating in sleep", headache and poor appetite for 3 days. Patient denies diarrhea, rhinorrhea and cough. Patient is not up to date on the seasonal influenza vaccine. Patient is . When asked, patient reports that her blood pressure is usually normal. TRAVEL OUTSIDE OF THE [place] IN LAST 30 DAYS: No - Related Data Allergies/Adverse Reactions: No Known Allergies Allergy (Verified 10/02/19 07:32) Past Medical History - General Information source: Patient - Social History Smoking Status: Never Smoker Cigarette use (# per day): No Chew tobacco use (# tins/day): No Frequency of alcohol use: None Drug Abuse: None Lives with: Family Family History: None Patient has suicidal ideation: No Patient has homicidal ideation: No - Medical History Medical History: Negative Past Surgical History: Reports: Hx Cholecystectomy Review of Systems - Review of Systems Constitutional: See HPI, Chills, Diaphoresis, Fever EENT: See HPI. denies: Nose discharge Cardiovascular: No symptoms reported Respiratory: See HPI. denies: Cough Gastrointestinal: See HPI, Vomiting, Poor appetite. denies: Diarrhea Genitourinary: No symptoms reported Female Genitourinary: No symptoms reported Musculoskeletal: No symptoms reported Skin: No symptoms reported Hematologic/Lymphatic: No symptoms reported Neurological/Psychological: No symptoms reported -: Yes All other systems reviewed and negative Physical Exam - Vital signs Vitals: Temp Pulse Resp BP Pulse Ox 100.3 F 125 H 20 114/51 L 96 10/30/19 21:11 10/30/19 21:11 10/30/19 21:11 10/30/19 21:11 10/30/19 21:11 - Notes Notes: Physical Exam: General: Alert, appears well. HEENT: Normocephalic. Atraumatic. PERRL. Extraocular movements intact. Oropharynx clear. Neck: Supple. Non-tender. Respiratory: No respiratory distress. Clear and equal breath sounds bilaterally. Cardiovascular: Regular rate and rhythm. Abdominal: Normal Inspection. Non-tender. No distension. Normal Bowel Sounds. Back: No gross abnormalities. Extremities: Moves all four extremities. Upper extremities: Normal inspection. Normal ROM. Lower extremities: Normal inspection. No edema. Normal ROM. Neurological: Normal cognition. AAOx4. Normal speech. Psychological: Normal affect. Normal Mood. Skin: Warm. Dry. Normal color. Course - Re-evaluation Re-evalutation: 10/31/19 01:26 Patient is received 2 L IV fluid feels much better. Patient also has drank 2 cups of water and was working on 1/3 cup. Patient was checked for orthostatic blood pressure and pulse and patient was able to stand without dizziness or feeling any weakness at all. Patient states she is ready to go home at this time. Patient's urine I think is contaminated with discharge and bleeding. Patient is 3 weeks at this time and still has a little bloody show this is diminishing over time. Repeat urinalysis after the instructing clean-catch specimen showed that a 3+ bacteria diminished down to trace bacteria. Patient reports she has no urinary symptoms of frequency burning discomfort and no back pain or pain in her flanks. Denies that urine nation is causing her any symptoms at all and thinks that her viral syndrome and fever for the past 3 days is unrelated to her urine. - Vital Signs Vital signs: Temp Pulse Resp BP Pulse Ox 98.3 F 125 H 18 101/76 100 10/30/19 23:18 10/30/19 21:11 10/31/19 01:14 10/31/19 01:14 10/31/19 01:14 - Laboratory Result Diagrams: 10/30/19 20:20 10/30/19 20:20 Laboratory results interpreted by la: 10/30/19 10/30/19 10/30/19 20:20 20:20 20:20 Hgb 10.8 L Hct 32.8 L MCV 66 L MCH 21.8 L RDW 19.5 H Lymph % (Auto) 12.2 L Sodium 136.4 L Creatinine 1.30 H Est GFR (MDRD) Non-Af 50 L Urine Protein 100 H Urine Ketones 20 H Urine Blood MODERATE H Urine Urobilinogen 4.0 H Ur Leukocyte Esterase Leukocyte Esterase Rfl MODERATE H 10/30/19 23:50 Hgb Hct MCV MCH RDW Lymph % (Auto) Sodium Creatinine Est GFR (MDRD) Non-Af Urine Protein 100 H Urine Ketones TRACE H Urine Blood MODERATE H Urine Urobilinogen 4.0 H Ur Leukocyte Esterase LARGE H Leukocyte Esterase Rfl Discharge - Discharge Clinical Impression: Dehydration, Viral syndrome, Nausea and vomiting Condition: Stable Disposition: HOME, SELF-CARE Instructions: Antinausea Medication ([facility]), Viral Syndrome ([facility]) Additional Instructions: Dehydration Dehydration can result from vomiting or diarrhea, fever, or decreased i ntake of fluids. If severe, hospitalization and intravenous fluids may be required. Most cases are treated at home with fluids by mouth. For the next 24 hours, drink lots of clear fluids. In mild cases, this can be soda pop or sports drinks. For more severe dehydration, the doctor may recom mend special fluids such as Pedialyte or Lytren. Try to get three liters (3 quarts) of fluid per day. If vomiting occurs, continue to drink the fluids frequently (every 15 to 20 minutes), but in small amounts (one or two ounces). Depending on the type of dehydration, the doctor may prescribe antinausea medicine or potassium replacements. Call the doctor or return for re-examination if you become progressively weak, vomit repeatedly, or have other new symptoms. Prescriptions: Ondansetron [Zofran Odt 4 mg Tablet] 1 - 2 tab PO Q4HP PRN #10 tab.rapdis PRN Reason: Referrals: ARNEL MEJIAS MD [Primary Care Provider] - Follow up as needed I personally performed the services described in the documentation, reviewed and edited the documentation which was dictated to the scribe in my presence, and it accurately records my words and actions.
[2019-10-31 01:35] VITALS: BP 96/66
== END 2019-10-31 02:04 | disposition home or self-care (01) ==
LOC: ER 19:12
DX: O90.9 Complication of the puerperium, unspecified (principal); E86.0 Dehydration; B34.9 Viral infection, unspecified; R11.2 Nausea with vomiting, unspecified; R50.9 Fever, unspecified; I95.9 Hypotension, unspecified; R51 Headache
CPT/HCPCS: 36415; 83690; 84703; 85025; 80053; 81001; 87804; S0119; J7030